=== PATIENT | female | born 1935 | race Caucasian/White ===

== ENCOUNTER 2018-04-02 10:43 | Inpatient (IN) | payer MEDICARE ==
[~2018-04-02] VITALS: Ht 170.2 cm; Wt 62.1 kg
[~2018-04-02 10:43] MED LIST: ACET-2900 PO; ALLO100T PO; AMOX-429 PO; ATOR20TA65 PO; CARV6.25 PO; CELE-84 PO; CITA-107 PO; DIGO0.12 PO; FENO130C8 PO; FISH1CAP50 PO; FURO40TA7 PO; GABA-531 PO; INSU100I3 SQ; LEVO112T7 PO; LIRAGLUTIDE SQ; LISI-613 PO; MAAL30 PO; MELO-106 PO; METO-296 PO; MULT-1203 PO; OMEP20TA25 PO; POTA-79 PO; ROSU10TA PO; SPIR25TA6 PO; VENL225T3 PO; WARF10TA45 PO; ZOLP10TA2 PO; [UNRECOGNIZED DRUG - CODE] PO
[2018-04-02 11:35] LABS: BASOPHILS % (AUTO) 0.3 % (0.0-5.0); EOSINOPHILS % (AUTO) 0.2 % (0.0-8.0); HEMATOCRIT 32.6 % (36-48); MEAN CORPUSCULAR HEMOGLOBIN 30.9 pg (27.0-33.0); MEAN CORPUSCULAR HGB CONC 32.8 g/dL (32.0-36.0); MONOCYTES % (AUTO) 2.7 % (3.0-13.0); NEUTROPHILS % (AUTO) 86.8 % (40.0-77.0); PLATELET COUNT (AUTO) 280 K/uL (130-400); RED BLOOD CELL COUNT(AUTO) 3.46 MIL/uL (4.00-5.50); RED CELL DISTRIBUTION WIDTH 18.6 % (11.0-15.5); WHITE BLOOD COUNT (AUTO) 15.1 K/uL (4.8-10.8)
[2018-04-02 11:36] LABS: ABG BASE EXCESS 6.8 mmol/L (-2.0-3.0); ABG HCO3 31.2 mmol/L (21.0-28.0); ABG PCO2 43 mmHg (32-45)
[2018-04-02 11:43] LABS: CREATININE 1.3 mg/dL (0.5-1.5); POTASSIUM 4.3 mmol/L (3.5-5.1)
[2018-04-02] MEDS ORDERED: MEROPENEM 1 GM VIAL ONE (11:48)
[2018-04-02] MEDS ORDERED: SODIUM CHLORIDE 0.9% 100 ML IV ONE (11:48)
[2018-04-02 11:58] LABS: BILIRUBIN,TOTAL 0.4 mg/dL (0.2-1.0); CREATINE KINASE MB 1.4 ng/mL (0.5-3.6); TOTAL PROTEIN, SERUM 7.1 g/dL (6.0-8.3)
[2018-04-02 12:10] LABS: INR 1.85 (0.85-1.15); PARTIAL THROMBOPLASTIN TIME 42.5 SEC (26.3-35.5); PROTHROMBIN TIME 19.2 SEC (9.6-11.6)
[2018-04-02 13:26] LABS: APPEARANCE,URINE Clear (CLEAR); BILIRUBIN,URINE Negative (NEGATIVE); COLOR,URINE Yellow (YELLOW); GLUCOSE, URINE (UA) Negative (NEGATIVE); KETONES,URINE Negative (NEGATIVE); LEUKOCYTE ESTERASE ,URINE Trace (NEGATIVE); NITRATE,URINE Negative (NEGATIVE); OCCULT BLOOD,URINE Negative (NEGATIVE); PROTEIN,URINE Negative (NEGATIVE)
[2018-04-02] MEDS ORDERED: AZITHROMYCIN 500MG+NS 250ML 250 ML IV ONE (13:36)
[2018-04-02] MEDS ORDERED: FUROSEMIDE 10 MG/ML 4ML VIAL ONE (13:36)
[2018-04-02] MEDS ORDERED: CEFTRIAXONE SODIUM 1 GM ONE (13:36)
[2018-04-02 13:37] LABS: BACTERIA,URINE Many /HPF (None Seen); RBC,URINE 0-1 /HPF (0-1); WBC,URINE 0-1 /HPF (0-1)
[2018-04-02] MEDS ORDERED: SODIUM CHLORIDE 0.9% 50 ML IV ONE (13:37)
[2018-04-02] MEDS ORDERED: SODIUM CHLORIDE 0.9% 250 ML IV ONE (13:37)
[2018-04-02 13:38] LABS: SQUAMOUS EPITHELIAL CELL,UR Rare /HPF (0-2)
[2018-04-02] MEDS ORDERED: SODIUM CHLORIDE 0.9% 10 ML VIAL IVP PRN (13:45)
[2018-04-02] MEDS ORDERED: IPRATROPIUM/ALBUTEROL SULFATE 3 ML SOLUTION IH PRN (13:45)
[2018-04-02] MEDS: IPRATROPIUM/ALBUTEROL SULFATE 3 ML SOLUTION IH SCH ×3 (13:51→22:50)
[2018-04-02] MEDS: CEFTRIAXONE SODIUM 1 GM IVP SCH (14:00)
[2018-04-02] MEDS: FUROSEMIDE 10 MG/ML 4ML VIAL IVP SCH (14:00)
[2018-04-02] MEDS: AZITHROMYCIN 500MG+NS 250ML 250 ML IV SCH (14:00)
[2018-04-02 15:05] VITALS: BP 151/77
[2018-04-02] MEDS ORDERED: MELA1TAB28 PO (16:59)
[2018-04-02] MEDS ORDERED: CELE50CA PO (16:59)
[2018-04-02] MEDS ORDERED: PRAV40TA3 PO (16:59)
[2018-04-02] MEDS ORDERED: CARV6.25 PO (16:59)
[2018-04-02] MEDS ORDERED: LISI-613 PO (17:00)
[2018-04-02] MEDS ORDERED: ACETAMINOPHEN EXTENDED RELEASE 650 MG TABLET PO PRN (17:00)
[2018-04-02] MEDS ORDERED: OMEP20CA10 PO (17:00)
[2018-04-02] MEDS ORDERED: ALPR0.25 PO (17:00)
[2018-04-02] MEDS ORDERED: BENZONATATE 100 MG CAPSULE PO PRN (17:00)
[2018-04-02] MEDS ORDERED: METO10TA3 PO (17:00)
[2018-04-02] MEDS ORDERED: BENZ-51 PO (17:00)
[2018-04-02] MEDS ORDERED: LEVO150T11 PO (17:00)
[2018-04-02] MEDS ORDERED: FUROSEMIDE 80 MG TABLET PO PRN (17:00)
[2018-04-02] MEDS ORDERED: LEVO112T7 PO (17:00)
[2018-04-02] MEDS ORDERED: NAPR-1192 PO (17:00)
[2018-04-02] MEDS ORDERED: NAPROXEN 250 MG TAB PO PRN (17:00)
[2018-04-02] MEDS ORDERED: FURO40TA5 PO (17:00)
[2018-04-02] MEDS ORDERED: VENL-63 PO (17:00)
[2018-04-02] MEDS ORDERED: PRED10TA3 PO (17:00)
[2018-04-02] MEDS ORDERED: ASCO10007 PO (17:00)
[2018-04-02] MEDS ORDERED: VENL75CA97 PO (17:00)
[2018-04-02] MEDS ORDERED: CHOL200013 PO (17:00)
[2018-04-02] MEDS ORDERED: FUROSEMIDE 40 MG TABLET PO PRN (17:00)
[2018-04-02] MEDS ORDERED: FURO80TA3 PO (17:00)
[2018-04-02] MEDS ORDERED: DULA0.75 SQ (17:00)
[2018-04-02] MEDS ORDERED: SOTA80TA PO (17:00)
[2018-04-02] MEDS: ALPRAZOLAM 0.25 MG TABLET PO PRN (17:18)
[2018-04-02 20:00] VITALS: BP 105/50
[2018-04-02] MEDS: PYRIDOXINE HCL PO SCH (21:00)
[2018-04-02] MEDS ORDERED: CELECOXIB PO SCH (21:00)
[2018-04-02] MEDS: CARVEDILOL 6.25 MG TABLET PO SCH (21:00)
[2018-04-02] MEDS: MELATONIN PO SCH (21:00)
[2018-04-02] MEDS: SOTALOL HCL 80 MG TABLET PO SCH (21:49)
[2018-04-02] MEDS: VENLAFAXINE HCL 75 MG TAB PO SCH (21:49)
[2018-04-02] MEDS: FISH OIL 1000 MG/CAP PO SCH (21:49)
[2018-04-02] MEDS: ATORVASTATIN CALCIUM 10 MG TABLET PO SCH (21:49)
[2018-04-02] MEDS: METOCLOPRAMIDE 10 MG TABLET PO SCH (21:49)
[2018-04-03] VITALS (7 sets, daily range): BP systolic 100–140; BP diastolic 50–76
[2018-04-03] MEDS: IPRATROPIUM/ALBUTEROL SULFATE 3 ML SOLUTION IH SCH ×6 (01:59→21:45)
[2018-04-03] MEDS: FUROSEMIDE 10 MG/ML 4ML VIAL IVP SCH (03:57)
[2018-04-03 04:12] LABS: HEMATOCRIT 31.2 % (36-48); MEAN CORPUSCULAR HEMOGLOBIN 31.7 pg (27.0-33.0); MEAN CORPUSCULAR HGB CONC 33.5 g/dL (32.0-36.0); MEAN CORPUSCULAR VOLUME 94.6 fL (79-99); NUCLEATED RED BLOOD CELLS 0.1 % (0.0-0.19); PLATELET COUNT (AUTO) 283 K/uL (130-400); RED CELL DISTRIBUTION WIDTH 18.6 % (11.0-15.5)
[2018-04-03 04:30] LABS: ALBUMIN 1.8 g/dL (3.5-5.0); BILIRUBIN,TOTAL 0.3 mg/dL (0.2-1.0); CREATININE 1.3 mg/dL (0.5-1.5); POTASSIUM 4.6 mmol/L (3.5-5.1); TOTAL PROTEIN, SERUM 6.8 g/dL (6.0-8.3)
[2018-04-03] MEDS: IPRATROPIUM 0.5 MG/2.5 ML INH IH SCH ×4 (06:00→18:00)
[2018-04-03] MEDS: LEVOTHYROXINE 112 MCG TABLET PO SCH (06:57)
[2018-04-03] MEDS: **HM**Cholecalciferol (Vitamin D3) (Vitamin D3) 2,000 UNIT PO SCH (09:00)
[2018-04-03] MEDS ORDERED: VENLAFAXINE HCL XR 150 MG CAP PO SCH (09:00)
[2018-04-03] MEDS: SOTALOL HCL 80 MG TABLET PO SCH ×2 (11:06→22:09)
[2018-04-03] MEDS: ALLOPURINOL 100 MG TABLET PO SCH (11:06)
[2018-04-03] MEDS: FISH OIL 1000 MG/CAP PO SCH ×2 (11:06→22:08)
[2018-04-03] MEDS: METOCLOPRAMIDE 10 MG TABLET PO SCH ×2 (11:06→22:08)
[2018-04-03] MEDS: VENLAFAXINE HCL XR 37.5 MG CAP PO SCH (11:06)
[2018-04-03] MEDS: PANTOPRAZOLE SODIUM 40 MG TABLET.DR PO SCH (11:07)
[2018-04-03] MEDS: CARVEDILOL 6.25 MG TABLET PO SCH ×2 (11:07→21:00)
[2018-04-03] MEDS: ASCORBIC ACID 500 MG TAB PO SCH (11:10)
[2018-04-03] MEDS: LISINOPRIL 20 MG TABLET PO SCH (11:10)
[2018-04-03] MEDS: PREDNISONE 10 MG TABLET PO SCH (11:11)
[2018-04-03] MEDS: AZITHROMYCIN 500MG+NS 250ML 250 ML IV SCH (15:07)
[2018-04-03] MEDS: CEFTRIAXONE SODIUM 1 GM IVP SCH (15:08)
[2018-04-03] MEDS ORDERED: WARFARIN SODIUM 10 MG TABLET PO SCH (16:00)
[2018-04-03] MEDS: ALPRAZOLAM 0.25 MG TABLET PO PRN (17:52)
[2018-04-03] MEDS: PYRIDOXINE HCL PO SCH (21:00)
[2018-04-03] MEDS: MELATONIN PO SCH (21:00)
[2018-04-03] MEDS: ATORVASTATIN CALCIUM 10 MG TABLET PO SCH (22:09)
[2018-04-03] MEDS: VENLAFAXINE HCL 75 MG TAB PO SCH (22:09)
[2018-04-04] MEDS: INSULIN HUMULIN R 100 UNIT/ML 3ML SQ SCH ×5 (00:05→21:58)
[2018-04-04] MEDS: IPRATROPIUM/ALBUTEROL SULFATE 3 ML SOLUTION IH SCH ×6 (01:27→22:38)
[2018-04-04 04:05] VITALS: BP 118/63
[2018-04-04] MEDS: IPRATROPIUM 0.5 MG/2.5 ML INH IH SCH ×4 (06:00→18:00)
[2018-04-04] MEDS: LEVOTHYROXINE 112 MCG TABLET PO SCH (07:06)
[2018-04-04] MEDS: PANTOPRAZOLE SODIUM 40 MG TABLET.DR PO SCH (07:06)
[2018-04-04 08:00] VITALS: BP 121/67
[2018-04-04] MEDS: **HM**Cholecalciferol (Vitamin D3) (Vitamin D3) 2,000 UNIT PO SCH (09:00)
[2018-04-04] MEDS: FISH OIL 1000 MG/CAP PO SCH ×2 (10:41→21:27)
[2018-04-04] MEDS: VENLAFAXINE HCL XR 37.5 MG CAP PO SCH (10:42)
[2018-04-04] MEDS: SOTALOL HCL 80 MG TABLET PO SCH ×2 (10:42→21:26)
[2018-04-04] MEDS: ALLOPURINOL 100 MG TABLET PO SCH (10:43)
[2018-04-04] MEDS: CARVEDILOL 6.25 MG TABLET PO SCH ×2 (10:43→21:00)
[2018-04-04] MEDS: FUROSEMIDE 40 MG TABLET PO SCH ×2 (10:43→18:03)
[2018-04-04] MEDS: METOCLOPRAMIDE 10 MG TABLET PO SCH ×2 (10:43→21:26)
[2018-04-04] MEDS: ASCORBIC ACID 500 MG TAB PO SCH (10:50)
[2018-04-04] MEDS: ZOSYN 3.375GM+NS 50ML 50 ML IV SCH ×2 (10:50→22:05)
[2018-04-04] MEDS: PREDNISONE 10 MG TABLET PO SCH (10:51)
[2018-04-04] MEDS: LEVOTHYROXINE 150 MCG TABLET PO SCH (10:51)
[2018-04-04] MEDS: LISINOPRIL 20 MG TABLET PO SCH (10:51)
[2018-04-04 11:31] VITALS: BP 145/67
[2018-04-04 15:52] VITALS: BP 119/63
[2018-04-04] MEDS ORDERED: WARFARIN SODIUM 10 MG TABLET PO SCH (16:00)
[2018-04-04] MEDS: ALPRAZOLAM 0.25 MG TABLET PO PRN (18:04)
[2018-04-04] MEDS: AZITHROMYCIN 500MG+NS 250ML 250 ML IV SCH (18:15)
[2018-04-04 19:00] VITALS: BP_SYST 106; BP_SYST 116; BP_DIAS 61; BP_DIAS 63
[2018-04-04] MEDS: PYRIDOXINE HCL PO SCH (21:00)
[2018-04-04] MEDS: MELATONIN PO SCH (21:00)
[2018-04-04] MEDS: VENLAFAXINE HCL 75 MG TAB PO SCH (21:26)
[2018-04-04] MEDS: ATORVASTATIN CALCIUM 10 MG TABLET PO SCH (21:26)
[2018-04-04 23:00] VITALS: BP 100/77
[2018-04-05 03:00] VITALS: BP 124/64
[2018-04-05] MEDS: IPRATROPIUM/ALBUTEROL SULFATE 3 ML SOLUTION IH SCH ×6 (03:00→22:28)
[2018-04-05] MEDS: ZOSYN 3.375GM+NS 50ML 50 ML IV SCH ×2 (04:11→10:48)
[2018-04-05 04:25] LABS: HEMATOCRIT 27.7 % (36-48); MEAN CORPUSCULAR HEMOGLOBIN 33.1 pg (27.0-33.0); MEAN CORPUSCULAR VOLUME 94.4 fL (79-99); PLATELET COUNT (AUTO) 257 K/uL (130-400); RED BLOOD CELL COUNT(AUTO) 2.93 MIL/uL (4.00-5.50); RED CELL DISTRIBUTION WIDTH 18.5 % (11.0-15.5); WHITE BLOOD COUNT (AUTO) 10.7 K/uL (4.8-10.8)
[2018-04-05 04:40] LABS: ALBUMIN 1.6 g/dL (3.5-5.0); BILIRUBIN,TOTAL 0.3 mg/dL (0.2-1.0); CREATININE 1.2 mg/dL (0.5-1.5); TOTAL PROTEIN, SERUM 6.5 g/dL (6.0-8.3)
[2018-04-05] MEDS: IPRATROPIUM 0.5 MG/2.5 ML INH IH SCH ×4 (06:00→18:00)
[2018-04-05] MEDS: INSULIN HUMULIN R 100 UNIT/ML 3ML SQ SCH ×4 (06:55→22:18)
[2018-04-05] MEDS: PANTOPRAZOLE SODIUM 40 MG TABLET.DR PO SCH (06:58)
[2018-04-05 08:32] VITALS: BP 122/65
[2018-04-05] MEDS: LISINOPRIL 20 MG TABLET PO SCH (09:00)
[2018-04-05] MEDS: **HM**Cholecalciferol (Vitamin D3) (Vitamin D3) 2,000 UNIT PO SCH (09:00)
[2018-04-05] MEDS: ALLOPURINOL 100 MG TABLET PO SCH (09:00)
[2018-04-05] MEDS ORDERED: LACTULOSE 20 GM/30 ML UDCUP PO PRN (10:30)
[2018-04-05] MEDS ORDERED: DOCUSATE SODIUM 100 MG CAP PO PRN (10:30)
[2018-04-05] MEDS: METOCLOPRAMIDE 10 MG TABLET PO SCH ×2 (10:45→22:13)
[2018-04-05] MEDS: FISH OIL 1000 MG/CAP PO SCH ×2 (10:45→22:12)
[2018-04-05] MEDS ORDERED: ONDANSETRON HCL MDV 20ML 2 MG/ML VIAL IVP PRN (10:45)
[2018-04-05] MEDS: ASCORBIC ACID 500 MG TAB PO SCH (10:45)
[2018-04-05] MEDS: FUROSEMIDE 40 MG TABLET PO SCH ×2 (10:45→17:14)
[2018-04-05] MEDS: SOTALOL HCL 80 MG TABLET PO SCH ×2 (10:46→22:13)
[2018-04-05] MEDS: VENLAFAXINE HCL XR 37.5 MG CAP PO SCH (10:46)
[2018-04-05] MEDS: CARVEDILOL 6.25 MG TABLET PO SCH ×2 (10:47→22:13)
[2018-04-05] MEDS: PREDNISONE 10 MG TABLET PO SCH (10:48)
[2018-04-05 11:42] VITALS: BP 112/45
[2018-04-05 16:02] VITALS: BP 120/62
[2018-04-05] MEDS: AZITHROMYCIN 500MG+NS 250ML 250 ML IV SCH (17:14)
[2018-04-05] MEDS: ALPRAZOLAM 0.25 MG TABLET PO PRN (17:58)
[2018-04-05 19:00] VITALS: BP 105/53
[2018-04-05] MEDS: MELATONIN PO SCH (21:00)
[2018-04-05] MEDS: PYRIDOXINE HCL PO SCH (21:00)
[2018-04-05] MEDS: ATORVASTATIN CALCIUM 10 MG TABLET PO SCH (22:12)
[2018-04-05] MEDS: VENLAFAXINE HCL 75 MG TAB PO SCH (22:13)
[2018-04-05 23:00] VITALS: BP 110/59
[2018-04-06] MEDS: IPRATROPIUM/ALBUTEROL SULFATE 3 ML SOLUTION IH SCH ×6 (01:31→22:28)
[2018-04-06] MEDS: ZOSYN 3.375GM+NS 50ML 50 ML IV SCH ×3 (02:12→17:19)
[2018-04-06 03:00] VITALS: BP 112/51
[2018-04-06] MEDS: IPRATROPIUM 0.5 MG/2.5 ML INH IH SCH ×3 (06:00→12:00)
[2018-04-06] MEDS: LEVOTHYROXINE 150 MCG TABLET PO SCH (06:19)
[2018-04-06] MEDS: PANTOPRAZOLE SODIUM 40 MG TABLET.DR PO SCH (06:19)
[2018-04-06] MEDS: INSULIN HUMULIN R 100 UNIT/ML 3ML SQ SCH ×4 (06:20→22:18)
[2018-04-06 06:41] LABS: HEMATOCRIT 30.9 % (36-48); MEAN CORPUSCULAR HEMOGLOBIN 31.4 pg (27.0-33.0); MEAN CORPUSCULAR HGB CONC 33.1 g/dL (32.0-36.0); PLATELET COUNT (AUTO) 291 K/uL (130-400); RED BLOOD CELL COUNT(AUTO) 3.25 MIL/uL (4.00-5.50); RED CELL DISTRIBUTION WIDTH 17.9 % (11.0-15.5); WHITE BLOOD COUNT (AUTO) 11.4 K/uL (4.8-10.8)
[2018-04-06 06:48] LABS: CREATININE 1.2 mg/dL (0.5-1.5); POTASSIUM 4.4 mmol/L (3.5-5.1)
[2018-04-06 08:00] VITALS: BP 143/65
[2018-04-06] MEDS: **HM**Cholecalciferol (Vitamin D3) (Vitamin D3) 2,000 UNIT PO SCH (09:00)
[2018-04-06] MEDS: ASCORBIC ACID 500 MG TAB PO SCH (10:06)
[2018-04-06] MEDS: VENLAFAXINE HCL XR 37.5 MG CAP PO SCH (10:06)
[2018-04-06] MEDS: FISH OIL 1000 MG/CAP PO SCH ×2 (10:06→22:09)
[2018-04-06] MEDS: METOCLOPRAMIDE 10 MG TABLET PO SCH ×2 (10:06→22:08)
[2018-04-06] MEDS: PREDNISONE 10 MG TABLET PO SCH (10:07)
[2018-04-06] MEDS: SOTALOL HCL 80 MG TABLET PO SCH ×2 (10:07→22:08)
[2018-04-06] MEDS: ALLOPURINOL 100 MG TABLET PO SCH (10:07)
[2018-04-06] MEDS: LISINOPRIL 20 MG TABLET PO SCH (10:07)
[2018-04-06] MEDS: FUROSEMIDE 40 MG TABLET PO SCH ×2 (10:07→17:19)
[2018-04-06] MEDS: CARVEDILOL 6.25 MG TABLET PO SCH ×2 (10:08→22:08)
[2018-04-06 11:00] VITALS: BP 144/83
[2018-04-06] MEDS: AZITHROMYCIN 500MG+NS 250ML 250 ML IV SCH (14:35)
[2018-04-06 16:00] VITALS: BP 122/68
[2018-04-06] MEDS: ALPRAZOLAM 0.25 MG TABLET PO PRN (18:05)
[2018-04-06 20:00] VITALS: BP 126/61
[2018-04-06] MEDS: MELATONIN PO SCH (21:00)
[2018-04-06] MEDS: PYRIDOXINE HCL PO SCH (21:00)
[2018-04-06] MEDS: ATORVASTATIN CALCIUM 10 MG TABLET PO SCH (22:08)
[2018-04-06] MEDS: VENLAFAXINE HCL 75 MG TAB PO SCH (22:08)
[2018-04-06 23:53] VITALS: BP 128/73
[2018-04-07] MEDS: IPRATROPIUM 0.5 MG/2.5 ML INH IH SCH
[2018-04-07] MEDS: IPRATROPIUM/ALBUTEROL SULFATE 3 ML SOLUTION IH SCH ×6 (02:20→21:29)
[2018-04-07 03:29] VITALS: BP 143/87
[2018-04-07] MEDS: ZOSYN 3.375GM+NS 50ML 50 ML IV SCH ×3 (03:37→20:05)
[2018-04-07] MEDS: INSULIN HUMULIN R 100 UNIT/ML 3ML SQ SCH ×3 (06:10→18:12)
[2018-04-07 06:16] LABS: HEMATOCRIT 30.8 % (36-48); MEAN CORPUSCULAR HEMOGLOBIN 30.7 pg (27.0-33.0); MEAN CORPUSCULAR HGB CONC 32.6 g/dL (32.0-36.0); PLATELET COUNT (AUTO) 254 K/uL (130-400); RED BLOOD CELL COUNT(AUTO) 3.27 MIL/uL (4.00-5.50); RED CELL DISTRIBUTION WIDTH 18.1 % (11.0-15.5); WHITE BLOOD COUNT (AUTO) 8.7 K/uL (4.8-10.8)
[2018-04-07 06:26] LABS: CREATININE 1.2 mg/dL (0.5-1.5); POTASSIUM 3.7 mmol/L (3.5-5.1)
[2018-04-07] MEDS: LEVOTHYROXINE 112 MCG TABLET PO SCH (06:38)
[2018-04-07] MEDS: PANTOPRAZOLE SODIUM 40 MG TABLET.DR PO SCH (06:38)
[2018-04-07 08:00] VITALS: BP 137/69
[2018-04-07] MEDS: **HM**Cholecalciferol (Vitamin D3) (Vitamin D3) 2,000 UNIT PO SCH (09:00)
[2018-04-07] MEDS: FISH OIL 1000 MG/CAP PO SCH ×2 (10:26→20:07)
[2018-04-07] MEDS: VENLAFAXINE HCL XR 37.5 MG CAP PO SCH (10:26)
[2018-04-07] MEDS: ALLOPURINOL 100 MG TABLET PO SCH (10:27)
[2018-04-07] MEDS: SOTALOL HCL 80 MG TABLET PO SCH ×2 (10:27→20:06)
[2018-04-07] MEDS: CARVEDILOL 6.25 MG TABLET PO SCH ×2 (10:27→20:06)
[2018-04-07] MEDS: METOCLOPRAMIDE 10 MG TABLET PO SCH ×2 (10:27→20:07)
[2018-04-07] MEDS: FUROSEMIDE 40 MG TABLET PO SCH ×2 (10:30→18:04)
[2018-04-07] MEDS: ASCORBIC ACID 500 MG TAB PO SCH (10:42)
[2018-04-07] MEDS: LISINOPRIL 20 MG TABLET PO SCH (10:42)
[2018-04-07] MEDS: PREDNISONE 10 MG TABLET PO SCH (10:42)
[2018-04-07 11:00] VITALS: BP 170/90
[2018-04-07 16:00] VITALS: BP 114/57
[2018-04-07] MEDS: ALPRAZOLAM 0.25 MG TABLET PO PRN (18:04)
[2018-04-07] MEDS: AZITHROMYCIN 500MG+NS 250ML 250 ML IV SCH (18:04)
[2018-04-07 19:00] VITALS: BP 151/77
[2018-04-07] MEDS: ATORVASTATIN CALCIUM 10 MG TABLET PO SCH (20:06)
[2018-04-07] MEDS: VENLAFAXINE HCL 75 MG TAB PO SCH (20:06)
[2018-04-07] MEDS: PYRIDOXINE HCL PO SCH (20:07)
[2018-04-07] MEDS: MELATONIN PO SCH (20:07)
[2018-04-07 23:00] VITALS: BP 128/67
[2018-04-08] MEDS: IPRATROPIUM/ALBUTEROL SULFATE 3 ML SOLUTION IH SCH ×5 (02:43→18:44)
[2018-04-08 03:00] VITALS: BP_SYST 113; BP_SYST 134; BP_DIAS 63
[2018-04-08] MEDS: ZOSYN 3.375GM+NS 50ML 50 ML IV SCH ×2 (03:43→11:32)
[2018-04-08] MEDS: INSULIN HUMULIN R 100 UNIT/ML 3ML SQ SCH ×4 (03:44→16:12)
[2018-04-08 05:25] LABS: HEMATOCRIT 30.3 % (36-48); MEAN CORPUSCULAR HEMOGLOBIN 30.7 pg (27.0-33.0); MEAN CORPUSCULAR HGB CONC 32.8 g/dL (32.0-36.0); MEAN CORPUSCULAR VOLUME 93.5 fL (79-99); NUCLEATED RED BLOOD CELLS 0.1 % (0.0-0.19); PLATELET COUNT (AUTO) 271 K/uL (130-400); RED BLOOD CELL COUNT(AUTO) 3.24 MIL/uL (4.00-5.50); RED CELL DISTRIBUTION WIDTH 18.1 % (11.0-15.5); WHITE BLOOD COUNT (AUTO) 8.8 K/uL (4.8-10.8)
[2018-04-08 05:29] LABS: CREATININE 1.3 mg/dL (0.5-1.5); POTASSIUM 3.9 mmol/L (3.5-5.1)
[2018-04-08] MEDS: PANTOPRAZOLE SODIUM 40 MG TABLET.DR PO SCH (06:33)
[2018-04-08] MEDS: LEVOTHYROXINE 150 MCG TABLET PO SCH (06:33)
[2018-04-08 07:00] VITALS: BP 141/75
[2018-04-08] MEDS: **HM**Cholecalciferol (Vitamin D3) (Vitamin D3) 2,000 UNIT PO SCH (09:00)
[2018-04-08] MEDS: HONEY 1 APPL/ML TUBE TP SCH ×2 (10:00→16:02)
[2018-04-08 11:00] VITALS: BP 134/81
[2018-04-08] MEDS: FUROSEMIDE 40 MG TABLET PO SCH ×2 (11:21→16:07)
[2018-04-08] MEDS: LISINOPRIL 20 MG TABLET PO SCH (11:21)
[2018-04-08] MEDS: VENLAFAXINE HCL XR 37.5 MG CAP PO SCH (11:21)
[2018-04-08] MEDS: FISH OIL 1000 MG/CAP PO SCH (11:22)
[2018-04-08] MEDS: ASCORBIC ACID 500 MG TAB PO SCH (11:22)
[2018-04-08] MEDS: PREDNISONE 10 MG TABLET PO SCH (11:22)
[2018-04-08] MEDS: SOTALOL HCL 80 MG TABLET PO SCH (11:22)
[2018-04-08] MEDS: CARVEDILOL 6.25 MG TABLET PO SCH (11:22)
[2018-04-08] MEDS: METOCLOPRAMIDE 10 MG TABLET PO SCH (11:23)
[2018-04-08] MEDS: ALLOPURINOL 100 MG TABLET PO SCH (11:23)
[2018-04-08 15:21] VITALS: BP 155/72
[2018-04-08] MEDS: AZITHROMYCIN 500MG+NS 250ML 250 ML IV SCH (15:42)
[2018-04-08] MEDS: ALPRAZOLAM 0.25 MG TABLET PO PRN (18:00)
[2018-04-08 19:05] VITALS: BP 136/67
[2018-04-08] MEDS ORDERED: INSULIN GLARGINE 100 UNITS/ML 10 ML VIAL SQ SCH (21:00)
[2018-04-09] MEDS ORDERED: DULAGLUTIDE 0.75 MG SQ SCH (09:00)
[2018-05-21] MEDS ORDERED: MELA5TAB14 PEG (18:49)
[2018-05-21] MEDS ORDERED: VENL150T3 PEG (18:49)
[2018-05-21] MEDS ORDERED: FURO-151 PEG (18:49)
[2018-05-21] MEDS ORDERED: HONE15GE TP (18:49)
[2018-05-21] MEDS ORDERED: CELE100C PEG (18:49)
[2018-05-21] MEDS ORDERED: LEVO150T11 PEG (18:49)
[2018-05-21] MEDS ORDERED: CARV6.25 PEG (18:49)
[2018-05-21] MEDS ORDERED: LEVO112T7 PEG (18:49)
[2018-05-21] MEDS ORDERED: INSLAN SQ (18:49)
[2018-05-21] MEDS ORDERED: PRED10TA3 PEG (18:49)
[2018-05-21] MEDS ORDERED: LANS30TA10 PEG (18:49)
[2018-05-21] MEDS ORDERED: WARF-57 PEG (18:49)
[2018-05-21] MEDS ORDERED: SOTA80TA PEG (18:49)
[2018-05-21] MEDS ORDERED: IPRA3AMP24 IH (18:49)
== END 2018-04-08 20:10 | DRG 177 ==
LOC: EDH 10:43 → OBSVTOIN 13:16 → EDHIP 13:16 → 3CH 14:15
PROVIDERS: ADMIT Internal Medicine; ATTEND Internal Medicine
DX: J69.0 Pneumonitis due to inhalation of food and vomit (principal); J96.01 Acute respiratory failure with hypoxia; I50.43 Acute on chronic combined systolic (congestive) and diastolic (congestive) heart failure; D68.9 Coagulation defect, unspecified; E11.65 Type 2 diabetes mellitus with hyperglycemia; I48.91 Unspecified atrial fibrillation; J44.1 Chronic obstructive pulmonary disease with (acute) exacerbation; J44.0 Chronic obstructive pulmonary disease with (acute) lower respiratory infection; I11.0 Hypertensive heart disease with heart failure; I25.10 Atherosclerotic heart disease of native coronary artery without angina pectoris; K21.9 Gastro-esophageal reflux disease without esophagitis; R13.10 Dysphagia, unspecified; Z79.01 Long term (current) use of anticoagulants; Z93.3 Colostomy status; Z95.2 Presence of prosthetic heart valve; Z88.5 Allergy status to narcotic agent; Z88.2 Allergy status to sulfonamides; Z88.8 Allergy status to other drugs, medicaments and biological substances; E78.5 Hyperlipidemia, unspecified; Z90.49 Acquired absence of other specified parts of digestive tract
CPT/HCPCS: 36415; 36600; 70450; 71045; 74230; 80048; 80053; 81001; 82550; 82553; 82803; 82948; 83605; 83880; 84484; 85025; 85027; 85610; 85730; 87040; 92610; 92611; 93005; 93306; 94640; 94664; 94667; 94668; 97039; A4218; J0456; J0696; J1815; J1940; J2185; J2543; J7030; J7512

== ENCOUNTER 2018-04-23 17:45 | Inpatient (IN) | payer MEDICARE ==
[~2018-04-23] VITALS: Ht 157.5 cm; Wt 62.6 kg
[~2018-04-23 17:45] MED LIST changes: +ALPR0.25 PO; -AMOX-429 PO; +ASCO10007 PO; -ATOR20TA65 PO; +BENZ-51 PO; -CELE-84 PO; +CELE50CA PO; +CHOL200013 PO; -CITA-107 PO; -DIGO0.12 PO; +DULA0.75 SQ; -FENO130C8 PO; -FISH1CAP50 PO; +FURO40TA5 PO; -FURO40TA7 PO; +FURO80TA3 PO; -GABA-531 PO; -INSU100I3 SQ; +LEVO150T11 PO; -LIRAGLUTIDE SQ; -MAAL30 PO; +MELA1TAB28 PO; -MELO-106 PO; -METO-296 PO; +METO10TA3 PO; -MULT-1203 PO; +NAPR-1192 PO; +OMEP20CA10 PO; -OMEP20TA25 PO; -POTA-79 PO; +PRAV40TA3 PO; +PRED10TA3 PO; -ROSU10TA PO; +SOTA80TA PO; -SPIR25TA6 PO; +VENL-63 PO; -VENL225T3 PO; +VENL75CA97 PO; -WARF10TA45 PO; -ZOLP10TA2 PO; -[UNRECOGNIZED DRUG - CODE] PO
[2018-04-23] MEDS ORDERED: IPRATROPIUM/ALBUTEROL SULFATE 3 ML SOLUTION IH ONE (17:52)
[2018-04-23 18:25] LABS: BASOPHILS % (AUTO) 0.2 % (0.0-5.0); HEMATOCRIT 40.5 % (36-48); LYMPHOCYTES % (AUTO) 17.1 % (21.0-51.0); MEAN CORPUSCULAR HEMOGLOBIN 30.6 pg (27.0-33.0); MEAN CORPUSCULAR HGB CONC 31.5 g/dL (32.0-36.0); MEAN CORPUSCULAR VOLUME 97.2 fL (79-99); MONOCYTES % (AUTO) 4.9 % (3.0-13.0); NEUTROPHILS % (AUTO) 77.8 % (40.0-77.0); NUCLEATED RED BLOOD CELLS 0.1 % (0.0-0.19); PLATELET COUNT (AUTO) 316 K/uL (130-400); RED BLOOD CELL COUNT(AUTO) 4.17 MIL/uL (4.00-5.50); RED CELL DISTRIBUTION WIDTH 18.3 % (11.0-15.5); WHITE BLOOD COUNT (AUTO) 12.7 K/uL (4.8-10.8)
[2018-04-23 18:30] LABS: ALBUMIN 2.6 g/dL (3.5-5.0); BILIRUBIN,TOTAL 0.7 mg/dL (0.2-1.0); CREATININE 1.8 mg/dL (0.5-1.5); POTASSIUM 4.8 mmol/L (3.5-5.1); TOTAL PROTEIN, SERUM 8.2 g/dL (6.0-8.3)
[2018-04-23 18:33] LABS: INR 1.09 (0.85-1.15); PARTIAL THROMBOPLASTIN TIME 29.1 SEC (26.3-35.5); PROTHROMBIN TIME 11.4 SEC (9.6-11.6)
[2018-04-23 18:36] LABS: ABG BASE EXCESS 5.8 mmol/L (-2.0-3.0); ABG HCO3 30.5 mmol/L (21.0-28.0); ABG OXYGEN SATURATION 96.4 % (95.0-99.0); ABG PCO2 44 mmHg (32-45)
[2018-04-23] MEDS ORDERED: NITROGLYCERIN 0.4 MG SL TAB SL ONE (18:38)
[2018-04-23] MEDS ORDERED: ZOSYN 3.375GM+NS 50ML 50 ML IV ONE (18:38)
[2018-04-23] MEDS ORDERED: METHYLPREDNISOLONE SOD SUCC 125MG/2ML VIAL ONE (18:38)
[2018-04-23] MEDS ORDERED: NITROGLYCERIN 1GM/1 INCH PACKET TD ONE (18:39)
[2018-04-23] MEDS ORDERED: FUROSEMIDE 10 MG/ML 10ML VIAL IVP SCH (21:00)
[2018-04-23] MEDS ORDERED: ASPIRIN 325 MG TABLET ONE (21:17)
[2018-04-23] MEDS ORDERED: VANCOMYCIN 1GM+NS 250ML 250 ML IV ONE (21:18)
[2018-04-23] MEDS ORDERED: CEFTRIAXONE SODIUM 1 GM ONE (22:18)
[2018-04-23] MEDS ORDERED: FUROSEMIDE 10 MG/ML 4ML VIAL ONE (22:18)
[2018-04-23 23:33] VITALS: BP 138/68
[2018-04-23] MEDS: IPRATROPIUM/ALBUTEROL SULFATE 3 ML SOLUTION IH SCH (23:41)
[2018-04-24] MEDS ORDERED: TIOT18CA3 IH (03:55)
[2018-04-24] MEDS ORDERED: IPRA3AMP24 IH (03:55)
[2018-04-24] MEDS ORDERED: COLL1POW2 MC (03:55)
[2018-04-24] MEDS ORDERED: INSLAN SQ (03:55)
[2018-04-24] MEDS ORDERED: LIRA3PEN SQ (03:55)
[2018-04-24] MEDS ORDERED: WARF5TAB76 PO (03:55)
[2018-04-24] MEDS ORDERED: PROM50TA3 PO (03:55)
[2018-04-24] MEDS ORDERED: INSU100V3 IJ (03:57)
[2018-04-24 04:00] VITALS: BP 144/89
[2018-04-24] MEDS ORDERED: FUROSEMIDE 10 MG/ML 4ML VIAL IVP SCH (06:00)
[2018-04-24] MEDS: IPRATROPIUM/ALBUTEROL SULFATE 3 ML SOLUTION IH SCH ×4 (06:53→23:18)
[2018-04-24 07:28] VITALS: BP 141/92
[2018-04-24] MEDS ORDERED: NAPROXEN 250 MG TAB PO PRN (08:00)
[2018-04-24] MEDS ORDERED: ACETAMINOPHEN EXTENDED RELEASE 650 MG TABLET PO PRN (08:00)
[2018-04-24] MEDS ORDERED: PROMETHAZINE HCL 25 MG TABLET PO PRN (08:00)
[2018-04-24] MEDS ORDERED: BENZONATATE 100 MG CAPSULE PO PRN (08:00)
[2018-04-24] MEDS: LIRAGLUTIDE 1.8 MG SQ SCH (09:00)
[2018-04-24] MEDS ORDERED: CEFTRIAXONE SODIUM 1 GM IVP SCH (09:00)
[2018-04-24] MEDS ORDERED: PREDNISONE 10 MG TABLET PO SCH (09:00)
[2018-04-24] MEDS ORDERED: VENLAFAXINE HCL XR 37.5 MG CAP PO SCH ×2 (09:00→21:00)
[2018-04-24] MEDS ORDERED: SUB TO IPRATROPIUM 0.5MG/2.5ML PER P&T IH SCH (09:00)
[2018-04-24] MEDS: ***HM***(Cholecalciferol (Vitamin D3) (Vitamin D3) 2,000 UNIT) PO SCH (09:00)
[2018-04-24] MEDS ORDERED: IPRATROPIUM/ALBUTEROL SULFATE 3 ML SOLUTION IH SCH (10:00)
[2018-04-24 11:09] VITALS: BP 156/74
[2018-04-24] MEDS: FUROSEMIDE 10 MG/ML 10ML VIAL IVP SCH ×2 (11:37→20:50)
[2018-04-24] MEDS: SOTALOL HCL 80 MG TABLET PO SCH ×2 (11:37→20:47)
[2018-04-24] MEDS: CARVEDILOL 6.25 MG TABLET PO SCH ×2 (11:38→20:47)
[2018-04-24] MEDS: ASCORBIC ACID 500 MG TAB PO SCH (11:38)
[2018-04-24] MEDS: ALLOPURINOL 100 MG TABLET PO SCH (11:38)
[2018-04-24] MEDS ORDERED: PHARMACY COMMUNICATION MISC SCH (11:45)
[2018-04-24] MEDS: LEVOTHYROXINE 150 MCG TABLET PO SCH (12:00)
[2018-04-24] MEDS: INSULIN GLARGINE 100 UNITS/ML 10 ML VIAL SQ SCH (12:28)
[2018-04-24] MEDS: PREDNISONE 10 MG TABLET PO SCH ×3 (14:30→20:48)
[2018-04-24] MEDS ORDERED: CEFEPIME 1GM+NS 50ML 50 ML IV SCH (14:30)
[2018-04-24 16:04] VITALS: BP 165/87
[2018-04-24] MEDS: METOCLOPRAMIDE 10 MG TABLET PO SCH (16:21)
[2018-04-24] MEDS: WARFARIN SODIUM 5 MG TAB PO SCH (16:21)
[2018-04-24] MEDS: CEFEPIME HCL 1 GM VIAL IVP SCH (17:46)
[2018-04-24] MEDS: INSULIN HUMULIN R 100 UNIT/ML 3ML SQ SCH ×2 (17:48→21:20)
[2018-04-24] MEDS ORDERED: ALPRAZOLAM 0.5 MG TABLET ONE (17:50)
[2018-04-24] MEDS: ENOXAPARIN SODIUM 60 MG/0.6 ML SQ SCH (17:52)
[2018-04-24] MEDS: ALPRAZOLAM 0.25 MG TABLET PO PRN (17:53)
[2018-04-24] MEDS: DOXYCYCLINE 100MG+NS 250ML 250 ML IV SCH (18:20)
[2018-04-24 20:01] VITALS: BP 146/78
[2018-04-24] MEDS: CELECOXIB 100 MG CAP PO SCH (20:46)
[2018-04-24] MEDS: VENLAFAXINE HCL 50 MG TABLET PO SCH (20:46)
[2018-04-24] MEDS: ATORVASTATIN CALCIUM 20 MG TABLET PO SCH (20:47)
[2018-04-24] MEDS: PYRIDOXINE HCL PO SCH (20:48)
[2018-04-24] MEDS: MELATONIN PO SCH (20:48)
[2018-04-24 23:41] VITALS: BP 137/73
[2018-04-25 03:48] VITALS: BP_SYST 127; BP_SYST 144; BP_DIAS 69; BP_DIAS 76
[2018-04-25 04:17] LABS: BASOPHILS % (AUTO) 0.1 % (0.0-5.0); HEMATOCRIT 33.5 % (36-48); LYMPHOCYTES % (AUTO) 13.9 % (21.0-51.0); MEAN CORPUSCULAR HEMOGLOBIN 32.4 pg (27.0-33.0); MEAN CORPUSCULAR HGB CONC 34.3 g/dL (32.0-36.0); MEAN CORPUSCULAR VOLUME 94.5 fL (79-99); MONOCYTES % (AUTO) 3.7 % (3.0-13.0); NEUTROPHILS % (AUTO) 82.3 % (40.0-77.0); PLATELET COUNT (AUTO) 256 K/uL (130-400); RED BLOOD CELL COUNT(AUTO) 3.54 MIL/uL (4.00-5.50); RED CELL DISTRIBUTION WIDTH 18.7 % (11.0-15.5); WHITE BLOOD COUNT (AUTO) 12.4 K/uL (4.8-10.8)
[2018-04-25 04:19] LABS: ABG BASE EXCESS 11.2 mmol/L (-2.0-3.0); ABG PCO2 42 mmHg (32-45)
[2018-04-25 04:30] LABS: INR 1.21 (0.85-1.15); PROTHROMBIN TIME 12.7 SEC (9.6-11.6)
[2018-04-25 04:39] LABS: ALBUMIN 2.1 g/dL (3.5-5.0); BILIRUBIN,TOTAL 0.3 mg/dL (0.2-1.0); CREATININE 1.4 mg/dL (0.5-1.5); MAGNESIUM 1.7 mg/dL (1.80-2.40); PHOSPHORUS 2.8 mg/dL (2.5-4.9); POTASSIUM 3.3 mmol/L (3.5-5.1); THYROID STIMULATING HORMONE 3.91 uIU/mL (0.36-3.74); TOTAL PROTEIN, SERUM 7.1 g/dL (6.0-8.3)
[2018-04-25] MEDS: CEFEPIME HCL 1 GM VIAL IVP SCH ×2 (05:20→17:13)
[2018-04-25] MEDS: DOXYCYCLINE 100MG+NS 250ML 250 ML IV SCH ×2 (05:21→17:13)
[2018-04-25] MEDS: INSULIN HUMULIN R 100 UNIT/ML 3ML SQ SCH ×3 (05:36→21:28)
[2018-04-25] MEDS: IPRATROPIUM/ALBUTEROL SULFATE 3 ML SOLUTION IH SCH ×3 (06:41→18:14)
[2018-04-25] MEDS ORDERED: PANTOPRAZOLE SODIUM 40 MG TABLET.DR PO SCH (07:30)
[2018-04-25 08:00] VITALS: BP 154/83
[2018-04-25] MEDS: ***HM***(Cholecalciferol (Vitamin D3) (Vitamin D3) 2,000 UNIT) PO SCH (09:00)
[2018-04-25] MEDS ORDERED: VENLAFAXINE HCL 50 MG TABLET PO SCH (09:00)
[2018-04-25] MEDS: LIRAGLUTIDE 1.8 MG SQ SCH (09:00)
[2018-04-25] MEDS: PREDNISONE 10 MG TABLET PO SCH ×4 (09:00→21:33)
[2018-04-25] MEDS: FUROSEMIDE 10 MG/ML 10ML VIAL IVP SCH ×2 (09:14→23:10)
[2018-04-25] MEDS: ALLOPURINOL 100 MG TABLET PO SCH (09:15)
[2018-04-25] MEDS: ASCORBIC ACID 500 MG TAB PO SCH (09:15)
[2018-04-25] MEDS: METOCLOPRAMIDE 10 MG TABLET PO SCH ×2 (09:16→17:13)
[2018-04-25] MEDS: SOTALOL HCL 80 MG TABLET PO SCH ×2 (09:16→21:37)
[2018-04-25] MEDS: CARVEDILOL 6.25 MG TABLET PO SCH ×2 (09:16→21:29)
[2018-04-25] MEDS: LEVOTHYROXINE 112 MCG TABLET PO SCH (09:21)
[2018-04-25] MEDS: ENOXAPARIN SODIUM 60 MG/0.6 ML SQ SCH (09:23)
[2018-04-25] MEDS: INSULIN GLARGINE 100 UNITS/ML 10 ML VIAL SQ SCH (09:25)
[2018-04-25] MEDS: FAMOTIDINE 20MG TAB 20 MG TAB PO SCH ×2 (10:43→21:29)
[2018-04-25 11:49] VITALS: BP 123/70
[2018-04-25] MEDS ORDERED: POTASSIUM CHLORIDE 10% ELIXIR 20 MEQ/15 ML UDCUP PO PRN (13:00)
[2018-04-25] MEDS ORDERED: POTASSIUM CHLORIDE 20MEQ/100ML 100 ML IV PRN (13:00)
[2018-04-25] MEDS ORDERED: LIDOCAINE HCL-MPF 1% 2ML VIAL IVP PRN (13:00)
[2018-04-25] MEDS ORDERED: MAGNESIUM 2GM PREMIX 50ML 50 ML IV SCH (13:00)
[2018-04-25 16:00] VITALS: BP 114/59
[2018-04-25] MEDS: FUROSEMIDE 20 MG TABLET PO SCH (17:10)
[2018-04-25] MEDS: ALPRAZOLAM 0.25 MG TABLET PO PRN (17:12)
[2018-04-25] MEDS: WARFARIN SODIUM 5 MG TAB PO SCH (17:13)
[2018-04-25] MEDS: POTASSIUM CHLORIDE 20 MEQ ERTAB PO PRN (17:16)
[2018-04-25 19:20] VITALS: BP 122/68
[2018-04-25] MEDS: MELATONIN PO SCH (21:00)
[2018-04-25] MEDS: PYRIDOXINE HCL PO SCH (21:00)
[2018-04-25] MEDS: ATORVASTATIN CALCIUM 20 MG TABLET PO SCH (21:29)
[2018-04-25] MEDS: VENLAFAXINE HCL 50 MG TABLET PO SCH (22:08)
[2018-04-25] MEDS: CELECOXIB 100 MG CAP PO SCH (22:08)
[2018-04-25] MEDS ORDERED: FUROSEMIDE 10 MG/ML 2ML VIAL ONE (23:09)
[2018-04-25] MEDS ORDERED: WARFARIN SODIUM 5 MG TAB PO SCH (23:30)
[2018-04-26] VITALS (7 sets, daily range): BP systolic 110–151; BP diastolic 61–81
[2018-04-26] MEDS: IPRATROPIUM/ALBUTEROL SULFATE 3 ML SOLUTION IH SCH ×4 (00:57→18:39)
[2018-04-26] MEDS: POTASSIUM CHLORIDE 20 MEQ ERTAB PO PRN (02:08)
[2018-04-26 05:37] LABS: HEMATOCRIT 35.1 % (36-48); MEAN CORPUSCULAR HEMOGLOBIN 31.1 pg (27.0-33.0); MEAN CORPUSCULAR HGB CONC 32.9 g/dL (32.0-36.0); MEAN CORPUSCULAR VOLUME 94.7 fL (79-99); PLATELET COUNT (AUTO) 193 K/uL (130-400); RED BLOOD CELL COUNT(AUTO) 3.71 MIL/uL (4.00-5.50); RED CELL DISTRIBUTION WIDTH 18.4 % (11.0-15.5)
[2018-04-26 05:44] LABS: INR 1.22 (0.85-1.15); PROTHROMBIN TIME 12.8 SEC (9.6-11.6)
[2018-04-26 05:47] LABS: CREATININE 1.3 mg/dL (0.5-1.5); MAGNESIUM 2.1 mg/dL (1.80-2.40); PHOSPHORUS 2.5 mg/dL (2.5-4.9); POTASSIUM 3.7 mmol/L (3.5-5.1)
[2018-04-26] MEDS: INSULIN HUMULIN R 100 UNIT/ML 3ML SQ SCH ×4 (07:03→21:27)
[2018-04-26] MEDS: CEFEPIME HCL 1 GM VIAL IVP SCH ×2 (07:05→18:59)
[2018-04-26] MEDS: DOXYCYCLINE 100MG+NS 250ML 250 ML IV SCH ×2 (07:06→18:59)
[2018-04-26] MEDS: LEVOTHYROXINE 150 MCG TABLET PO SCH (07:11)
[2018-04-26] MEDS: LIRAGLUTIDE 1.8 MG SQ SCH (09:00)
[2018-04-26] MEDS ORDERED: ENOXAPARIN SODIUM 60 MG/0.6 ML SQ SCH (09:00)
[2018-04-26] MEDS: ***HM***(Cholecalciferol (Vitamin D3) (Vitamin D3) 2,000 UNIT) PO SCH (09:00)
[2018-04-26] MEDS: ENOXAPARIN SODIUM 60 MG/0.6 ML SQ SCH (09:00)
[2018-04-26] MEDS: CARVEDILOL 6.25 MG TABLET PO SCH ×2 (11:21→21:24)
[2018-04-26] MEDS: PREDNISONE 10 MG TABLET PO SCH ×2 (11:22→21:25)
[2018-04-26] MEDS: ALLOPURINOL 100 MG TABLET PO SCH (11:22)
[2018-04-26] MEDS: FAMOTIDINE 20MG TAB 20 MG TAB PO SCH ×2 (11:22→21:24)
[2018-04-26] MEDS: METOCLOPRAMIDE 10 MG TABLET PO SCH ×2 (11:23→16:30)
[2018-04-26] MEDS: VENLAFAXINE HCL XR 37.5 MG CAP PO SCH ×2 (11:23→21:29)
[2018-04-26] MEDS: SOTALOL HCL 80 MG TABLET PO SCH ×2 (11:23→21:23)
[2018-04-26] MEDS: FUROSEMIDE 20 MG TABLET PO SCH ×2 (11:23→16:29)
[2018-04-26] MEDS: ASCORBIC ACID 500 MG TAB PO SCH (11:24)
[2018-04-26] MEDS: INSULIN GLARGINE 100 UNITS/ML 10 ML VIAL SQ SCH (11:44)
[2018-04-26] MEDS: WARFARIN SODIUM 5 MG TAB PO SCH (16:29)
[2018-04-26] MEDS: ALPRAZOLAM 0.25 MG TABLET PO PRN (18:59)
[2018-04-26] MEDS: PYRIDOXINE HCL PO SCH (21:00)
[2018-04-26] MEDS: MELATONIN PO SCH (21:00)
[2018-04-26] MEDS: ATORVASTATIN CALCIUM 20 MG TABLET PO SCH (21:24)
[2018-04-26] MEDS: CELECOXIB 100 MG CAP PO SCH (21:25)
[2018-04-27 00:26] VITALS: BP 121/72
[2018-04-27] MEDS: IPRATROPIUM/ALBUTEROL SULFATE 3 ML SOLUTION IH SCH ×5 (00:58→22:59)
[2018-04-27 04:06] VITALS: BP 142/77
[2018-04-27] MEDS: CEFEPIME HCL 1 GM VIAL IVP SCH ×2 (05:34→18:53)
[2018-04-27] MEDS: DOXYCYCLINE 100MG+NS 250ML 250 ML IV SCH ×2 (05:42→18:53)
[2018-04-27] MEDS: LEVOTHYROXINE 112 MCG TABLET PO SCH (05:46)
[2018-04-27 06:37] LABS: INR 1.3 (0.85-1.15); PROTHROMBIN TIME 13.6 SEC (9.6-11.6)
[2018-04-27 06:38] LABS: CREATININE 1.4 mg/dL (0.5-1.5); POTASSIUM 3.9 mmol/L (3.5-5.1)
[2018-04-27 06:40] LABS: MEAN CORPUSCULAR HGB CONC 33.5 g/dL (32.0-36.0); MEAN CORPUSCULAR VOLUME 95.4 fL (79-99); NUCLEATED RED BLOOD CELLS 0.1 % (0.0-0.19); PLATELET COUNT (AUTO) 243 K/uL (130-400); RED BLOOD CELL COUNT(AUTO) 3.57 MIL/uL (4.00-5.50); RED CELL DISTRIBUTION WIDTH 18.7 % (11.0-15.5); WHITE BLOOD COUNT (AUTO) 9.9 K/uL (4.8-10.8)
[2018-04-27] MEDS: INSULIN HUMULIN R 100 UNIT/ML 3ML SQ SCH ×4 (07:30→21:28)
[2018-04-27] MEDS: LIRAGLUTIDE 1.8 MG SQ SCH (08:20)
[2018-04-27] MEDS: ***HM***(Cholecalciferol (Vitamin D3) (Vitamin D3) 2,000 UNIT) PO SCH (08:21)
[2018-04-27 08:30] VITALS: BP 125/55
[2018-04-27] MEDS: SOTALOL HCL 80 MG TABLET PO SCH ×2 (09:17→21:23)
[2018-04-27] MEDS: ASCORBIC ACID 500 MG TAB PO SCH (09:17)
[2018-04-27] MEDS: VENLAFAXINE HCL XR 37.5 MG CAP PO SCH ×2 (09:17→21:23)
[2018-04-27] MEDS: ENOXAPARIN SODIUM 60 MG/0.6 ML SQ SCH (09:17)
[2018-04-27] MEDS: FAMOTIDINE 20MG TAB 20 MG TAB PO SCH ×2 (09:17→21:23)
[2018-04-27] MEDS: ALLOPURINOL 100 MG TABLET PO SCH (09:17)
[2018-04-27] MEDS: FUROSEMIDE 20 MG TABLET PO SCH ×2 (09:18→17:05)
[2018-04-27] MEDS: METOCLOPRAMIDE 10 MG TABLET PO SCH ×2 (09:18→17:05)
[2018-04-27] MEDS: CARVEDILOL 6.25 MG TABLET PO SCH ×2 (09:18→21:22)
[2018-04-27] MEDS: PREDNISONE 10 MG TABLET PO SCH ×2 (09:18→21:23)
[2018-04-27] MEDS: INSULIN GLARGINE 100 UNITS/ML 10 ML VIAL SQ SCH (09:39)
[2018-04-27 12:07] VITALS: BP 123/65
[2018-04-27 15:25] VITALS: BP 117/60
[2018-04-27] MEDS: WARFARIN SODIUM 5 MG TAB PO SCH (17:06)
[2018-04-27] MEDS: ALPRAZOLAM 0.25 MG TABLET PO PRN (17:07)
[2018-04-27 19:20] VITALS: BP 134/77
[2018-04-27] MEDS: PYRIDOXINE HCL PO SCH (21:00)
[2018-04-27] MEDS: MELATONIN PO SCH (21:00)
[2018-04-27] MEDS: ATORVASTATIN CALCIUM 20 MG TABLET PO SCH (21:22)
[2018-04-27] MEDS: CELECOXIB 100 MG CAP PO SCH (21:23)
[2018-04-28] VITALS (7 sets, daily range): BP systolic 106–147; BP diastolic 55–76
[2018-04-28] MEDS: DOXYCYCLINE 100MG+NS 250ML 250 ML IV SCH ×2 (06:00→17:16)
[2018-04-28] MEDS: CEFEPIME HCL 1 GM VIAL IVP SCH ×2 (06:00→17:15)
[2018-04-28] MEDS: LEVOTHYROXINE 150 MCG TABLET PO SCH (06:31)
[2018-04-28] MEDS: LEVOTHYROXINE 112 MCG TABLET PO SCH (06:31)
[2018-04-28] MEDS: METOCLOPRAMIDE 10 MG TABLET PO SCH ×2 (06:31→17:14)
[2018-04-28] MEDS: INSULIN HUMULIN R 100 UNIT/ML 3ML SQ SCH ×4 (06:39→21:42)
[2018-04-28] MEDS: IPRATROPIUM/ALBUTEROL SULFATE 3 ML SOLUTION IH SCH ×3 (06:44→20:00)
[2018-04-28 07:27] LABS: INR 1.54 (0.85-1.15)
[2018-04-28] MEDS: FUROSEMIDE 20 MG TABLET PO SCH ×2 (08:00→17:14)
[2018-04-28] MEDS: ***HM***(Cholecalciferol (Vitamin D3) (Vitamin D3) 2,000 UNIT) PO SCH (08:04)
[2018-04-28] MEDS: LIRAGLUTIDE 1.8 MG SQ SCH (08:05)
[2018-04-28] MEDS: INSULIN GLARGINE 100 UNITS/ML 10 ML VIAL SQ SCH (09:00)
[2018-04-28] MEDS: VENLAFAXINE HCL XR 37.5 MG CAP PO SCH ×2 (10:13→21:09)
[2018-04-28] MEDS: SOTALOL HCL 80 MG TABLET PO SCH ×2 (10:13→21:08)
[2018-04-28] MEDS: ALLOPURINOL 100 MG TABLET PO SCH (10:14)
[2018-04-28] MEDS: PREDNISONE 10 MG TABLET PO SCH ×2 (10:14→21:08)
[2018-04-28] MEDS: ASCORBIC ACID 500 MG TAB PO SCH (10:14)
[2018-04-28] MEDS: CARVEDILOL 6.25 MG TABLET PO SCH ×2 (10:15→21:09)
[2018-04-28] MEDS: FAMOTIDINE 20MG TAB 20 MG TAB PO SCH ×2 (10:15→21:09)
[2018-04-28] MEDS: ENOXAPARIN SODIUM 60 MG/0.6 ML SQ SCH (10:16)
[2018-04-28] MEDS: WARFARIN SODIUM 5 MG TAB PO SCH (17:13)
[2018-04-28] MEDS: ALPRAZOLAM 0.25 MG TABLET PO PRN (18:03)
[2018-04-28] MEDS: PYRIDOXINE HCL PO SCH (21:00)
[2018-04-28] MEDS: MELATONIN PO SCH (21:00)
[2018-04-28] MEDS: CELECOXIB 100 MG CAP PO SCH (21:08)
[2018-04-28] MEDS: ATORVASTATIN CALCIUM 20 MG TABLET PO SCH (21:08)
[2018-04-29] MEDS: IPRATROPIUM/ALBUTEROL SULFATE 3 ML SOLUTION IH SCH ×4 (00:17→18:59)
[2018-04-29 03:31] VITALS: BP 122/65
[2018-04-29 04:41] LABS: HEMATOCRIT 32.4 % (36-48); MEAN CORPUSCULAR HEMOGLOBIN 32.4 pg (27.0-33.0); MEAN CORPUSCULAR HGB CONC 33.9 g/dL (32.0-36.0); MEAN CORPUSCULAR VOLUME 95.6 fL (79-99); PLATELET COUNT (AUTO) 188 K/uL (130-400); RED BLOOD CELL COUNT(AUTO) 3.39 MIL/uL (4.00-5.50); RED CELL DISTRIBUTION WIDTH 18.5 % (11.0-15.5); WHITE BLOOD COUNT (AUTO) 10.2 K/uL (4.8-10.8)
[2018-04-29 04:48] LABS: CREATININE 1.3 mg/dL (0.5-1.5); POTASSIUM 4.2 mmol/L (3.5-5.1)
[2018-04-29 04:57] LABS: B-TYPE NATRIURETIC PEPTIDE 1070 pg/mL (0-100)
[2018-04-29] MEDS: LEVOTHYROXINE 112 MCG TABLET PO SCH (06:49)
[2018-04-29] MEDS: METOCLOPRAMIDE 10 MG TABLET PO SCH ×2 (06:50→16:27)
[2018-04-29] MEDS: CEFEPIME HCL 1 GM VIAL IVP SCH (06:50)
[2018-04-29] MEDS: LEVOTHYROXINE 150 MCG TABLET PO SCH (06:50)
[2018-04-29] MEDS: DOXYCYCLINE 100MG+NS 250ML 250 ML IV SCH (06:50)
[2018-04-29] MEDS: INSULIN HUMULIN R 100 UNIT/ML 3ML SQ SCH ×3 (06:50→16:28)
[2018-04-29 08:26] VITALS: BP 141/88
[2018-04-29] MEDS: LIRAGLUTIDE 1.8 MG SQ SCH (09:00)
[2018-04-29] MEDS: ***HM***(Cholecalciferol (Vitamin D3) (Vitamin D3) 2,000 UNIT) PO SCH (09:00)
[2018-04-29] MEDS: FUROSEMIDE 20 MG TABLET PO SCH ×2 (09:01→16:27)
[2018-04-29] MEDS: PREDNISONE 10 MG TABLET PO SCH (09:01)
[2018-04-29] MEDS: CARVEDILOL 6.25 MG TABLET PO SCH (09:02)
[2018-04-29] MEDS: FAMOTIDINE 20MG TAB 20 MG TAB PO SCH (09:03)
[2018-04-29] MEDS: ASCORBIC ACID 500 MG TAB PO SCH (09:03)
[2018-04-29] MEDS: ENOXAPARIN SODIUM 60 MG/0.6 ML SQ SCH (09:09)
[2018-04-29] MEDS: INSULIN GLARGINE 100 UNITS/ML 10 ML VIAL SQ SCH (09:22)
[2018-04-29] MEDS: ALLOPURINOL 100 MG TABLET PO SCH (09:22)
[2018-04-29] MEDS: SOTALOL HCL 80 MG TABLET PO SCH (09:22)
[2018-04-29] MEDS: VENLAFAXINE HCL XR 37.5 MG CAP PO SCH (09:23)
[2018-04-29 11:49] VITALS: BP 121/59
[2018-04-29 11:53] LABS: INR 2.37 (0.85-1.15); PROTHROMBIN TIME 24.5 SEC (9.6-11.6)
[2018-04-29] MEDS: WARFARIN SODIUM 5 MG TAB PO SCH (16:27)
[2018-04-29 16:49] VITALS: BP 135/75
[2018-04-29] MEDS: ALPRAZOLAM 0.25 MG TABLET PO PRN (17:56)
[2018-05-21] MEDS ORDERED: CARV6.25 PEG (18:49)
[2018-05-21] MEDS ORDERED: PRED10TA3 PEG (18:49)
[2018-05-21] MEDS ORDERED: VENL150T3 PEG (18:49)
[2018-05-21] MEDS ORDERED: FURO-151 PEG (18:49)
[2018-05-21] MEDS ORDERED: WARF-57 PEG (18:49)
[2018-05-21] MEDS ORDERED: LEVO150T11 PEG (18:49)
[2018-05-21] MEDS ORDERED: LANS30TA10 PEG (18:49)
[2018-05-21] MEDS ORDERED: LEVO112T7 PEG (18:49)
[2018-05-21] MEDS ORDERED: CELE100C PEG (18:49)
[2018-05-21] MEDS ORDERED: MELA5TAB14 PEG (18:49)
[2018-05-21] MEDS ORDERED: INSLAN SQ (18:49)
[2018-05-21] MEDS ORDERED: HONE15GE TP (18:49)
[2018-05-21] MEDS ORDERED: SOTA80TA PEG (18:49)
[2018-05-21] MEDS ORDERED: IPRA3AMP24 IH (18:49)
== END 2018-04-29 19:54 | DRG 193 ==
LOC: EDH 17:45 → EDHIP 19:26 → 2BH 23:28 → 3BH 04-25 12:14
PROVIDERS: ADMIT Internal Medicine; ATTEND Internal Medicine
PROC: 5A09357 Assistance with Respiratory Ventilation, Less than 24 Consecutive Hours, Continuous Positive Airway Pressure (ICD-10-PCS; principal; 2018-04-23)
PROC: 5A09357 Assistance with Respiratory Ventilation, Less than 24 Consecutive Hours, Continuous Positive Airway Pressure (ICD-10-PCS; 2018-04-24)
DX: J18.9 Pneumonia, unspecified organism (principal); I50.23 Acute on chronic systolic (congestive) heart failure; J96.90 Respiratory failure, unspecified, unspecified whether with hypoxia or hypercapnia; J44.0 Chronic obstructive pulmonary disease with (acute) lower respiratory infection; J44.1 Chronic obstructive pulmonary disease with (acute) exacerbation; E87.2 Acidosis; I42.9 Cardiomyopathy, unspecified; J84.10 Pulmonary fibrosis, unspecified; J18.0 Bronchopneumonia, unspecified organism; I11.0 Hypertensive heart disease with heart failure; L89.159 Pressure ulcer of sacral region, unspecified stage; R79.1 Abnormal coagulation profile; R13.10 Dysphagia, unspecified; M19.90 Unspecified osteoarthritis, unspecified site; F41.9 Anxiety disorder, unspecified; I44.30 Unspecified atrioventricular block; I25.10 Atherosclerotic heart disease of native coronary artery without angina pectoris; E11.649 Type 2 diabetes mellitus with hypoglycemia without coma; E78.5 Hyperlipidemia, unspecified; E03.9 Hypothyroidism, unspecified; F32.9 Major depressive disorder, single episode, unspecified; I48.2 Chronic atrial fibrillation; M32.9 Systemic lupus erythematosus, unspecified; Z79.4 Long term (current) use of insulin; Z90.49 Acquired absence of other specified parts of digestive tract; Z95.2 Presence of prosthetic heart valve; Z79.01 Long term (current) use of anticoagulants; Z91.19 Patient's noncompliance with other medical treatment and regimen; Z88.6 Allergy status to analgesic agent; Z88.8 Allergy status to other drugs, medicaments and biological substances; Z95.810 Presence of automatic (implantable) cardiac defibrillator
CPT/HCPCS: 36415; 36600; 71045; 71250; 80048; 80053; 82803; 82948; 83605; 83735; 83880; 84100; 84443; 84484; 85025; 85027; 85610; 85730; 87040; 92610; 93005; 94640; 94660; 94664; 97039; A4218; J0692; J0696; J1650; J1815; J1940; J2543; J2930; J3370; J3475; J3490; J7512

== ENCOUNTER 2018-05-02 09:11 | Inpatient (IN) | payer MEDICARE ==
[~2018-05-02] VITALS: Ht 170.2 cm; Wt 67.3 kg
[~2018-05-02 09:11] MED LIST changes: +COLL1POW2 MC; -DULA0.75 SQ; -FURO80TA3 PO; +INSLAN SQ; +INSU100V3 IJ; +IPRA3AMP4 IH; +LIRA3PEN SQ; +PROM50TA3 PO; +TIOT18CA3 IH; +WARF5TAB76 PO
[2018-05-02] MEDS ORDERED: SODIUM CHLORIDE 0.9% 1000ML 1,000 ML IV ONE (09:24)
[2018-05-02] MEDS ORDERED: ACETAMINOPHEN 650 MG SUPPOSITORY RC ONE (09:25)
[2018-05-02 09:36] LABS: BASOPHILS % (AUTO) 0.4 % (0.0-5.0); EOSINOPHILS % (AUTO) 0.1 % (0.0-8.0); HEMATOCRIT 41.2 % (36-48); LYMPHOCYTES % (AUTO) 15.3 % (21.0-51.0); MEAN CORPUSCULAR HGB CONC 32.6 g/dL (32.0-36.0); MEAN CORPUSCULAR VOLUME 95.3 fL (79-99); MONOCYTES % (AUTO) 3.4 % (3.0-13.0); NEUTROPHILS % (AUTO) 80.8 % (40.0-77.0); NUCLEATED RED BLOOD CELLS 0.1 % (0.0-0.19); PLATELET COUNT (AUTO) 259 K/uL (130-400); RED BLOOD CELL COUNT(AUTO) 4.33 MIL/uL (4.00-5.50); RED CELL DISTRIBUTION WIDTH 19.6 % (11.0-15.5); WHITE BLOOD COUNT (AUTO) 15.1 K/uL (4.8-10.8)
[2018-05-02] MEDS ORDERED: ZOSYN 3.375GM+NS 50ML 50 ML IV ONE ×2 (09:48→19:01)
[2018-05-02 09:58] LABS: APPEARANCE,URINE Clear (CLEAR); BILIRUBIN,URINE Negative (NEGATIVE); COLOR,URINE Yellow (YELLOW); GLUCOSE, URINE (UA) Negative (NEGATIVE); KETONES,URINE Negative (NEGATIVE); LEUKOCYTE ESTERASE ,URINE Negative (NEGATIVE); NITRATE,URINE Negative (NEGATIVE); OCCULT BLOOD,URINE Negative (NEGATIVE); PROTEIN,URINE POS 2+ (NEGATIVE); UROBILINOGEN,URINE 0.2 mg/dL (0.2-1.0)
[2018-05-02 10:04] LABS: INR 3.04 (0.85-1.15); PARTIAL THROMBOPLASTIN TIME 35.5 SEC (26.3-35.5); PROTHROMBIN TIME 31.2 SEC (9.6-11.6)
[2018-05-02 10:09] LABS: AMORPHOUS SEDIMENT,UR Moderate /LPF (None Seen); BACTERIA,URINE Rare /HPF (None Seen); RBC,URINE 0-1 /HPF (0-1); SQUAMOUS EPITHELIAL CELL,UR Rare /HPF (0-2); WBC,URINE 0-1 /HPF (0-1)
[2018-05-02 10:58] LABS: CREATININE 1.6 mg/dL (0.5-1.5)
[2018-05-02 10:59] LABS: BILIRUBIN,TOTAL 0.8 mg/dL (0.2-1.0)
[2018-05-02 11:14] LABS: CREATINE KINASE MB 0.7 ng/mL (0.5-3.6); POTASSIUM 3.9 mmol/L (3.5-5.1); TOTAL PROTEIN, SERUM 7.4 g/dL (6.0-8.3)
[2018-05-02 11:15] LABS: ALBUMIN 2.5 g/dL (3.5-5.0)
[2018-05-02 11:16] LABS: TROPONIN I 0.55 ng/mL (0.00-0.06)
[2018-05-02 18:08] VITALS: BP 113/74
[2018-05-02] MEDS ORDERED: SODIUM CHLORIDE 0.9% 10 ML VIAL IVP PRN (18:45)
[2018-05-02] MEDS ORDERED: ALPRAZOLAM 0.25 MG TABLET PO PRN (19:00)
[2018-05-02] MEDS ORDERED: PROMETHAZINE HCL 25 MG TABLET PO PRN (19:00)
[2018-05-02] MEDS ORDERED: PHARMACY COMMUNICATION MISC SCH (19:00)
[2018-05-02] MEDS ORDERED: BENZONATATE 100 MG CAPSULE PO PRN (19:00)
[2018-05-02] MEDS ORDERED: NAPROXEN 250 MG TAB PO PRN (19:00)
[2018-05-02] MEDS: ZOSYN 3.375GM+NS 50ML 50 ML IV SCH ×3 (19:00→21:00)
[2018-05-02] MEDS ORDERED: SODIUM CHLORIDE 0.9% 250 ML IV ONE (19:02)
[2018-05-02] MEDS ORDERED: ACET-2247 PO (19:04)
[2018-05-02 19:10] VITALS: BP 137/75
[2018-05-02] MEDS ORDERED: ACETAMINOPHEN 650 MG SUPPOSITORY RC PRN (20:00)
[2018-05-02] MEDS ORDERED: RENAL DOSE IV PRN (20:00)
[2018-05-02 20:05] VITALS: BP 141/64
[2018-05-02] MEDS ORDERED: VANCOMYCIN 1GM+NS 250ML 250 ML IV SCH (20:33)
[2018-05-02] MEDS ORDERED: VENLAFAXINE HCL XR 37.5 MG CAP PO SCH (21:00)
[2018-05-02] MEDS ORDERED: CELECOXIB 100 MG CAP PO SCH (21:00)
[2018-05-02] MEDS ORDERED: MELATONIN PO SCH (21:00)
[2018-05-02] MEDS ORDERED: METOCLOPRAMIDE 10 MG TABLET PO SCH (21:00)
[2018-05-02] MEDS ORDERED: PYRIDOXINE HCL PO SCH (21:00)
[2018-05-02] MEDS ORDERED: ATORVASTATIN CALCIUM 20 MG TABLET PO SCH (21:00)
[2018-05-02] MEDS ORDERED: FUROSEMIDE 40 MG TABLET PO SCH (21:00)
[2018-05-02] MEDS: IPRATROPIUM/ALBUTEROL SULFATE 3 ML SOLUTION IH SCH (21:57)
[2018-05-02] MEDS: METOCLOPRAMIDE 10 MG/2 ML VIAL IVP SCH (22:19)
[2018-05-02] MEDS: SOTALOL HCL 80 MG TABLET PO SCH (22:19)
[2018-05-02] MEDS: METHYLPREDNISOLONE SOD SUCC 40MG/ML 1ML IVP SCH (22:19)
[2018-05-02] MEDS: CARVEDILOL 6.25 MG TABLET PO SCH (22:19)
[2018-05-02 23:29] VITALS: BP 144/60
[2018-05-03 03:38] LABS: HEMATOCRIT 36.1 % (36-48); MEAN CORPUSCULAR HEMOGLOBIN 31.7 pg (27.0-33.0); MEAN CORPUSCULAR HGB CONC 33.1 g/dL (32.0-36.0); MEAN CORPUSCULAR VOLUME 95.8 fL (79-99); PLATELET COUNT (AUTO) 185 K/uL (130-400); RED BLOOD CELL COUNT(AUTO) 3.77 MIL/uL (4.00-5.50); RED CELL DISTRIBUTION WIDTH 19.3 % (11.0-15.5); WHITE BLOOD COUNT (AUTO) 15.9 K/uL (4.8-10.8)
[2018-05-03 03:46] LABS: INR 2.17 (0.85-1.15); PROTHROMBIN TIME 22.4 SEC (9.6-11.6)
[2018-05-03 03:59] LABS: BILIRUBIN,TOTAL 0.9 mg/dL (0.2-1.0); CREATININE 1.4 mg/dL (0.5-1.5); THYROID STIMULATING HORMONE 1.7 uIU/mL (0.36-3.74); TOTAL PROTEIN, SERUM 6.2 g/dL (6.0-8.3)
[2018-05-03 04:09] VITALS: BP 138/67
[2018-05-03] MEDS: LEVOTHYROXINE 112 MCG TABLET PO SCH (06:10)
[2018-05-03] MEDS: IPRATROPIUM/ALBUTEROL SULFATE 3 ML SOLUTION IH SCH ×4 (06:12→18:49)
[2018-05-03] MEDS: METOCLOPRAMIDE 10 MG/2 ML VIAL IVP SCH ×4 (06:28→21:21)
[2018-05-03] MEDS ORDERED: POTASSIUM CHLORIDE 10% ELIXIR 20 MEQ/15 ML UDCUP PO PRN (06:45)
[2018-05-03] MEDS ORDERED: LIDOCAINE HCL-MPF 1% 2ML VIAL IVP PRN (06:45)
[2018-05-03] MEDS ORDERED: POTASSIUM CHLORIDE 20 MEQ ERTAB PO PRN (06:45)
[2018-05-03] MEDS ORDERED: PANTOPRAZOLE SODIUM 40 MG TABLET.DR PO SCH (07:30)
[2018-05-03 07:32] VITALS: BP 123/64
[2018-05-03] MEDS: CARVEDILOL 6.25 MG TABLET PO SCH ×2 (08:33→21:21)
[2018-05-03] MEDS: PANTOPRAZOLE SODIUM 40 MG TABLET.DR PO SCH (08:33)
[2018-05-03] MEDS: METHYLPREDNISOLONE SOD SUCC 40MG/ML 1ML IVP SCH ×2 (08:34→21:21)
[2018-05-03] MEDS: SOTALOL HCL 80 MG TABLET PO SCH ×2 (08:34→21:20)
[2018-05-03] MEDS ORDERED: ASCORBIC ACID 500 MG TAB PO SCH (09:00)
[2018-05-03] MEDS ORDERED: SUB TO IPRATROPIUM 0.5MG/2.5ML PER P&T IH SCH (09:00)
[2018-05-03] MEDS ORDERED: VENLAFAXINE HCL XR 37.5 MG CAP PO SCH (09:00)
[2018-05-03] MEDS ORDERED: INSULIN GLARGINE 100 UNITS/ML 10 ML VIAL SQ SCH (09:00)
[2018-05-03] MEDS ORDERED: PREDNISONE 10 MG TABLET PO SCH (09:00)
[2018-05-03] MEDS ORDERED: LIRAGLUTIDE 1.8 MG SQ SCH (09:00)
[2018-05-03] MEDS ORDERED: COLLAGENASE CLOSTRIDIUM HIST MC SCH (09:00)
[2018-05-03] MEDS ORDERED: LISINOPRIL 20 MG TABLET PO SCH (09:00)
[2018-05-03] MEDS ORDERED: ***HM***(Cholecalciferol (Vitamin D3) (Vitamin D3) 2,000 UNIT) PO SCH (09:00)
[2018-05-03] MEDS: ZOSYN 3.375GM+NS 50ML 50 ML IV SCH ×2 (09:25→21:21)
[2018-05-03] MEDS: VANCOMYCIN 500MG+NS 100ML 100 ML IV SCH (09:25)
[2018-05-03 11:00] VITALS: BP 120/59
[2018-05-03] MEDS ORDERED: FURO40TA5 PO (13:14)
[2018-05-03] MEDS ORDERED: FURO80TA3 PO (13:14)
[2018-05-03] MEDS: LACTATED RINGERS 1000ML 1,000 ML IV SCH (14:58)
[2018-05-03] MEDS ORDERED: WARFARIN SODIUM 5 MG TAB PO SCH ×2 (16:00→21:00)
[2018-05-03 16:31] VITALS: BP 113/84
[2018-05-03 19:20] VITALS: BP 127/70
[2018-05-03] MEDS: CELECOXIB 100 MG CAP PO SCH (21:20)
[2018-05-03] MEDS: VENLAFAXINE HCL XR 37.5 MG CAP PO SCH (21:20)
[2018-05-03] MEDS: INSULIN HUMULIN R 100 UNIT/ML 3ML SQ SCH (22:58)
[2018-05-03 23:50] VITALS: BP 109/75
[2018-05-04 03:33] VITALS: BP 124/61
[2018-05-04 04:00] LABS: BASOPHILS % (AUTO) 0.1 % (0.0-5.0); HEMATOCRIT 34.9 % (36-48); LYMPHOCYTES % (AUTO) 5.8 % (21.0-51.0); MEAN CORPUSCULAR HEMOGLOBIN 31.2 pg (27.0-33.0); MEAN CORPUSCULAR HGB CONC 32.1 g/dL (32.0-36.0); MEAN CORPUSCULAR VOLUME 97.2 fL (79-99); MONOCYTES % (AUTO) 1.4 % (3.0-13.0); NEUTROPHILS % (AUTO) 92.7 % (40.0-77.0); NUCLEATED RED BLOOD CELLS 0.1 % (0.0-0.19); PLATELET COUNT (AUTO) 167 K/uL (130-400); RED BLOOD CELL COUNT(AUTO) 3.59 MIL/uL (4.00-5.50); RED CELL DISTRIBUTION WIDTH 19.6 % (11.0-15.5); WHITE BLOOD COUNT (AUTO) 11.6 K/uL (4.8-10.8)
[2018-05-04 04:12] LABS: INR 2.79 (0.85-1.15); PROTHROMBIN TIME 28.7 SEC (9.6-11.6)
[2018-05-04 04:13] LABS: B-TYPE NATRIURETIC PEPTIDE 945 pg/mL (0-100)
[2018-05-04 04:18] LABS: ALBUMIN 1.8 g/dL (3.5-5.0); BILIRUBIN,TOTAL 0.7 mg/dL (0.2-1.0); CREATININE 1.4 mg/dL (0.5-1.5); MAGNESIUM 1.7 mg/dL (1.80-2.40); POTASSIUM 3.4 mmol/L (3.5-5.1); TOTAL PROTEIN, SERUM 5.5 g/dL (6.0-8.3)
[2018-05-04] MEDS: LEVOTHYROXINE 150 MCG TABLET PO SCH (04:44)
[2018-05-04] MEDS: POTASSIUM CHLORIDE 20MEQ/100ML 100 ML IV PRN ×2 (06:05→16:05)
[2018-05-04] MEDS: LEVOTHYROXINE 112 MCG TABLET PO SCH (06:06)
[2018-05-04] MEDS: METOCLOPRAMIDE 10 MG/2 ML VIAL IVP SCH ×4 (06:06→21:42)
[2018-05-04] MEDS: IPRATROPIUM/ALBUTEROL SULFATE 3 ML SOLUTION IH SCH ×4 (06:10→18:04)
[2018-05-04] MEDS: LACTATED RINGERS 1000ML 1,000 ML IV SCH ×2 (06:20→22:40)
[2018-05-04] MEDS: INSULIN HUMULIN R 100 UNIT/ML 3ML SQ SCH ×4 (06:20→21:43)
[2018-05-04 07:42] VITALS: BP 129/66
[2018-05-04] MEDS ORDERED: VENLAFAXINE HCL XR 150 MG CAP PO SCH (09:00)
[2018-05-04] MEDS: PANTOPRAZOLE SODIUM 40 MG TABLET.DR PO SCH (09:03)
[2018-05-04] MEDS: CARVEDILOL 6.25 MG TABLET PO SCH ×2 (09:03→21:42)
[2018-05-04] MEDS: SOTALOL HCL 80 MG TABLET PO SCH ×2 (09:03→21:41)
[2018-05-04] MEDS: ZOSYN 3.375GM+NS 50ML 50 ML IV SCH ×2 (09:03→21:42)
[2018-05-04] MEDS: VANCOMYCIN 500MG+NS 100ML 100 ML IV SCH (09:03)
[2018-05-04] MEDS: METHYLPREDNISOLONE SOD SUCC 40MG/ML 1ML IVP SCH ×2 (09:04→21:42)
[2018-05-04] MEDS: VENLAFAXINE HCL XR 37.5 MG CAP PO SCH ×2 (09:10→21:41)
[2018-05-04 11:20] VITALS: BP 104/57
[2018-05-04] MEDS ORDERED: MAGNESIUM 2GM PREMIX 50ML 50 ML IV PRN (14:45)
[2018-05-04] MEDS: WARFARIN SODIUM 5 MG TAB PO SCH (16:06)
[2018-05-04 16:21] VITALS: BP 122/66
[2018-05-04 19:32] VITALS: BP 102/55
[2018-05-04] MEDS: CELECOXIB 100 MG CAP PO SCH (21:41)
[2018-05-04 23:38] VITALS: BP 101/53
[2018-05-05 03:54] LABS: BASOPHILS % (AUTO) 0.4 % (0.0-5.0); EOSINOPHILS % (AUTO) 0.2 % (0.0-8.0); HEMATOCRIT 33.2 % (36-48); LYMPHOCYTES % (AUTO) 6.9 % (21.0-51.0); MEAN CORPUSCULAR HEMOGLOBIN 31.5 pg (27.0-33.0); MEAN CORPUSCULAR HGB CONC 32.2 g/dL (32.0-36.0); MEAN CORPUSCULAR VOLUME 97.8 fL (79-99); MONOCYTES % (AUTO) 1.8 % (3.0-13.0); NEUTROPHILS % (AUTO) 90.7 % (40.0-77.0); NUCLEATED RED BLOOD CELLS 0.2 % (0.0-0.19); PLATELET COUNT (AUTO) 145 K/uL (130-400); RED CELL DISTRIBUTION WIDTH 19.9 % (11.0-15.5); WHITE BLOOD COUNT (AUTO) 10.9 K/uL (4.8-10.8)
[2018-05-05 03:56] VITALS: BP 108/58
[2018-05-05 04:00] LABS: CREATININE 1.4 mg/dL (0.5-1.5); MAGNESIUM 2.7 mg/dL (1.80-2.40); POTASSIUM 5.1 mmol/L (3.5-5.1)
[2018-05-05 04:06] LABS: INR 2.58 (0.85-1.15); PROTHROMBIN TIME 26.6 SEC (9.6-11.6)
[2018-05-05] MEDS: IPRATROPIUM/ALBUTEROL SULFATE 3 ML SOLUTION IH SCH ×4 (06:01→18:33)
[2018-05-05] MEDS: METOCLOPRAMIDE 10 MG/2 ML VIAL IVP SCH ×4 (06:20→21:07)
[2018-05-05] MEDS: LEVOTHYROXINE 150 MCG TABLET PO SCH (06:20)
[2018-05-05] MEDS: INSULIN HUMULIN R 100 UNIT/ML 3ML SQ SCH ×4 (06:33→21:22)
[2018-05-05 07:00] VITALS: BP 121/79
[2018-05-05] MEDS: VANCOMYCIN 500MG+NS 100ML 100 ML IV SCH (08:23)
[2018-05-05] MEDS: ZOSYN 3.375GM+NS 50ML 50 ML IV SCH ×2 (09:38→21:07)
[2018-05-05] MEDS: METHYLPREDNISOLONE SOD SUCC 40MG/ML 1ML IVP SCH ×2 (09:38→21:07)
[2018-05-05] MEDS: SOTALOL HCL 80 MG TABLET PO SCH ×2 (09:39→21:06)
[2018-05-05] MEDS: PANTOPRAZOLE SODIUM 40 MG TABLET.DR PO SCH (09:39)
[2018-05-05] MEDS: VENLAFAXINE HCL XR 37.5 MG CAP PO SCH ×2 (09:39→21:07)
[2018-05-05] MEDS: CARVEDILOL 6.25 MG TABLET PO SCH ×2 (09:40→21:06)
[2018-05-05 11:00] VITALS: BP 125/59
[2018-05-05 16:00] VITALS: BP 120/63
[2018-05-05] MEDS: WARFARIN SODIUM 5 MG TAB PO SCH (16:26)
[2018-05-05 19:26] VITALS: BP 135/59
[2018-05-05] MEDS: CELECOXIB 100 MG CAP PO SCH (21:06)
[2018-05-06 00:08] VITALS: BP 132/74
[2018-05-06 03:49] VITALS: BP 128/64
[2018-05-06 04:00] LABS: INR 2.77 (0.85-1.15); PROTHROMBIN TIME 28.5 SEC (9.6-11.6)
[2018-05-06] MEDS: IPRATROPIUM/ALBUTEROL SULFATE 3 ML SOLUTION IH SCH ×4 (06:13→18:17)
[2018-05-06] MEDS: METOCLOPRAMIDE 10 MG/2 ML VIAL IVP SCH ×4 (06:17→22:48)
[2018-05-06] MEDS: LEVOTHYROXINE 112 MCG TABLET PO SCH (06:17)
[2018-05-06] MEDS: INSULIN HUMULIN R 100 UNIT/ML 3ML SQ SCH ×4 (06:18→22:54)
[2018-05-06 07:00] VITALS: BP 138/67
[2018-05-06] MEDS: VANCOMYCIN 500MG+NS 100ML 100 ML IV SCH (08:06)
[2018-05-06] MEDS: ACETAMINOPHEN 325 MG TAB PO PRN (08:37)
[2018-05-06 08:38] LABS: HEMATOCRIT 31.1 % (36-48); MEAN CORPUSCULAR HEMOGLOBIN 32.9 pg (27.0-33.0); MEAN CORPUSCULAR HGB CONC 33.6 g/dL (32.0-36.0); MEAN CORPUSCULAR VOLUME 97.9 fL (79-99); NUCLEATED RED BLOOD CELLS 0.1 % (0.0-0.19); PLATELET COUNT (AUTO) 121 K/uL (130-400); RED BLOOD CELL COUNT(AUTO) 3.18 MIL/uL (4.00-5.50); RED CELL DISTRIBUTION WIDTH 19.4 % (11.0-15.5); WHITE BLOOD COUNT (AUTO) 9.5 K/uL (4.8-10.8)
[2018-05-06 08:55] LABS: INR 2.77 (0.85-1.15); PARTIAL THROMBOPLASTIN TIME 34.2 SEC (26.3-35.5); PROTHROMBIN TIME 28.5 SEC (9.6-11.6)
[2018-05-06 08:56] LABS: BILIRUBIN,TOTAL 0.5 mg/dL (0.2-1.0); CREATININE 1.3 mg/dL (0.5-1.5); POTASSIUM 3.6 mmol/L (3.5-5.1); TOTAL PROTEIN, SERUM 5.7 g/dL (6.0-8.3)
[2018-05-06] MEDS: ZOSYN 3.375GM+NS 50ML 50 ML IV SCH ×2 (10:39→22:48)
[2018-05-06] MEDS: METHYLPREDNISOLONE SOD SUCC 40MG/ML 1ML IVP SCH ×2 (10:39→22:47)
[2018-05-06] MEDS: VENLAFAXINE HCL XR 37.5 MG CAP PO SCH ×2 (10:40→21:00)
[2018-05-06] MEDS: CARVEDILOL 6.25 MG TABLET PO SCH ×3 (10:41→22:49)
[2018-05-06] MEDS: SOTALOL HCL 80 MG TABLET PO SCH ×3 (10:41→22:48)
[2018-05-06] MEDS: PANTOPRAZOLE SODIUM 40 MG TABLET.DR PO SCH (10:41)
[2018-05-06 11:00] VITALS: BP 119/54
[2018-05-06 16:00] VITALS: BP 129/62
[2018-05-06] MEDS: WARFARIN SODIUM 5 MG TAB PO SCH (16:55)
[2018-05-06 19:40] VITALS: BP 111/55
[2018-05-06] MEDS: CELECOXIB 100 MG CAP PO SCH (21:00)
[2018-05-07] VITALS (7 sets, daily range): BP systolic 96–149; BP diastolic 44–86
[2018-05-07] MEDS: LEVOTHYROXINE 150 MCG TABLET PO SCH (05:30)
[2018-05-07] MEDS: IPRATROPIUM/ALBUTEROL SULFATE 3 ML SOLUTION IH SCH ×4 (05:56→18:10)
[2018-05-07] MEDS: METOCLOPRAMIDE 10 MG/2 ML VIAL IVP SCH ×4 (08:00→21:49)
[2018-05-07] MEDS: INSULIN HUMULIN R 100 UNIT/ML 3ML SQ SCH ×4 (08:02→22:54)
[2018-05-07] MEDS: SOTALOL HCL 80 MG TABLET PO SCH ×2 (09:00→20:16)
[2018-05-07] MEDS: CARVEDILOL 6.25 MG TABLET PO SCH ×2 (09:00→20:17)
[2018-05-07] MEDS: PANTOPRAZOLE SODIUM 40 MG TABLET.DR PO SCH (09:00)
[2018-05-07] MEDS: VENLAFAXINE HCL XR 37.5 MG CAP PO SCH ×2 (09:00→20:18)
[2018-05-07] MEDS: METHYLPREDNISOLONE SOD SUCC 40MG/ML 1ML IVP SCH ×2 (11:12→21:48)
[2018-05-07] MEDS: VANCOMYCIN 500MG+NS 100ML 100 ML IV SCH (11:12)
[2018-05-07] MEDS: ZOSYN 3.375GM+NS 50ML 50 ML IV SCH ×2 (12:19→23:04)
[2018-05-07] MEDS: DEXTROSE 5 %-0.45 % NACL 1,000 ML IV SCH ×2 (12:21→18:37)
[2018-05-07] MEDS: LORAZEPAM 2 MG/ML 1 ML VIAL IVP PRN (14:58)
[2018-05-07] MEDS: CELECOXIB 100 MG CAP PO SCH (20:17)
[2018-05-07] MEDS ORDERED: VANCOMYCIN 500MG+NS 100ML 100 ML IV SCH (21:00)
[2018-05-08 03:50] LABS: HEMATOCRIT 34.3 % (36-48); MEAN CORPUSCULAR VOLUME 100.1 fL (79-99); PLATELET COUNT (AUTO) 123 K/uL (130-400); RED BLOOD CELL COUNT(AUTO) 3.43 MIL/uL (4.00-5.50); RED CELL DISTRIBUTION WIDTH 20.1 % (11.0-15.5); WHITE BLOOD COUNT (AUTO) 11.4 K/uL (4.8-10.8)
[2018-05-08 04:03] LABS: PARTIAL THROMBOPLASTIN TIME 41.3 SEC (26.3-35.5)
[2018-05-08 04:11] LABS: BILIRUBIN,TOTAL 0.6 mg/dL (0.2-1.0); CREATININE 1.1 mg/dL (0.5-1.5); POTASSIUM 3.5 mmol/L (3.5-5.1); TOTAL PROTEIN, SERUM 5.9 g/dL (6.0-8.3)
[2018-05-08 04:15] VITALS: BP 139/77
[2018-05-08 04:19] LABS: PROTHROMBIN TIME 54.9 SEC (9.6-11.6)
[2018-05-08 04:20] LABS: INR 5.4 (0.85-1.15)
[2018-05-08] MEDS: IPRATROPIUM/ALBUTEROL SULFATE 3 ML SOLUTION IH SCH ×4 (05:51→18:49)
[2018-05-08] MEDS: LEVOTHYROXINE 112 MCG TABLET PO SCH (06:02)
[2018-05-08] MEDS: INSULIN HUMULIN R 100 UNIT/ML 3ML SQ SCH ×4 (06:40→21:00)
[2018-05-08] MEDS: METOCLOPRAMIDE 10 MG/2 ML VIAL IVP SCH ×4 (06:43→21:31)
[2018-05-08] MEDS: DEXTROSE 5 %-0.45 % NACL 1,000 ML IV SCH ×4 (06:43→19:15)
[2018-05-08 07:36] VITALS: BP 144/73
[2018-05-08] MEDS: CARVEDILOL 6.25 MG TABLET PO SCH ×2 (07:52→21:00)
[2018-05-08] MEDS: PANTOPRAZOLE SODIUM 40 MG TABLET.DR PO SCH (07:52)
[2018-05-08] MEDS: VENLAFAXINE HCL XR 37.5 MG CAP PO SCH ×2 (07:52→21:00)
[2018-05-08] MEDS: SOTALOL HCL 80 MG TABLET PO SCH ×2 (07:52→21:00)
[2018-05-08] MEDS: METHYLPREDNISOLONE SOD SUCC 40MG/ML 1ML IVP SCH ×2 (07:59→21:31)
[2018-05-08] MEDS ORDERED: PHYTONADIONE 10 MG/1 ML AMP SQ SCH (08:00)
[2018-05-08] MEDS: VANCOMYCIN 500MG+NS 100ML 100 ML IV SCH (08:35)
[2018-05-08] MEDS: ZOSYN 3.375GM+NS 50ML 50 ML IV SCH ×2 (09:55→21:30)
[2018-05-08 12:00] VITALS: BP 97/53
[2018-05-08] MEDS: LORAZEPAM 2 MG/ML 1 ML VIAL IVP PRN (12:30)
[2018-05-08] MEDS ORDERED: PHYTONADIONE 10 MG/1 ML AMP IV SCH (15:45)
[2018-05-08 16:00] VITALS: BP 124/63
[2018-05-08] MEDS ORDERED: PHYTONADIONE 10 MG in SODIUM CHLORIDE 0.9% 50 ML IV ONE (17:00)
[2018-05-08 19:41] VITALS: BP 128/57
[2018-05-08] MEDS ORDERED: LORAZEPAM 2 MG/ML 1 ML VIAL IVP PRN (20:54)
[2018-05-08] MEDS: CELECOXIB 100 MG CAP PO SCH (21:00)
[2018-05-08 23:40] VITALS: BP 140/81
[2018-05-09] VITALS (20 sets, daily range): BP systolic 124–172; BP diastolic 61–86
[2018-05-09 04:00] LABS: HEMATOCRIT 33.6 % (36-48); MEAN CORPUSCULAR HEMOGLOBIN 31.3 pg (27.0-33.0); MEAN CORPUSCULAR HGB CONC 31.4 g/dL (32.0-36.0); MEAN CORPUSCULAR VOLUME 99.9 fL (79-99); NUCLEATED RED BLOOD CELLS 0.1 % (0.0-0.19); PLATELET COUNT (AUTO) 115 K/uL (130-400); RED BLOOD CELL COUNT(AUTO) 3.36 MIL/uL (4.00-5.50); RED CELL DISTRIBUTION WIDTH 19.6 % (11.0-15.5)
[2018-05-09 04:06] LABS: INR 1.27 (0.85-1.15); PARTIAL THROMBOPLASTIN TIME 31.3 SEC (26.3-35.5); PROTHROMBIN TIME 13.3 SEC (9.6-11.6)
[2018-05-09 04:13] LABS: ALBUMIN 1.9 g/dL (3.5-5.0); BILIRUBIN,TOTAL 0.7 mg/dL (0.2-1.0); POTASSIUM 3.3 mmol/L (3.5-5.1); TOTAL PROTEIN, SERUM 5.8 g/dL (6.0-8.3)
[2018-05-09] MEDS: LEVOTHYROXINE 150 MCG TABLET PO SCH (04:54)
[2018-05-09] MEDS: IPRATROPIUM/ALBUTEROL SULFATE 3 ML SOLUTION IH SCH ×4 (06:17→18:19)
[2018-05-09] MEDS: INSULIN HUMULIN R 100 UNIT/ML 3ML SQ SCH ×3 (06:22→16:39)
[2018-05-09] MEDS: METOCLOPRAMIDE 10 MG/2 ML VIAL IVP SCH ×4 (06:45→20:00)
[2018-05-09] MEDS: POTASSIUM CHLORIDE 20MEQ/100ML 100 ML IV PRN (07:01)
[2018-05-09] MEDS: SOTALOL HCL 80 MG TABLET PO SCH ×2 (09:00→20:00)
[2018-05-09] MEDS: VENLAFAXINE HCL XR 37.5 MG CAP PO SCH ×2 (09:00→19:58)
[2018-05-09] MEDS: PANTOPRAZOLE SODIUM 40 MG TABLET.DR PO SCH (09:00)
[2018-05-09] MEDS: CARVEDILOL 6.25 MG TABLET PO SCH ×2 (09:00→20:01)
[2018-05-09] MEDS: ZOSYN 3.375GM+NS 50ML 50 ML IV SCH ×2 (10:09→19:59)
[2018-05-09] MEDS: VANCOMYCIN 500MG+NS 100ML 100 ML IV SCH (10:09)
[2018-05-09] MEDS: METHYLPREDNISOLONE SOD SUCC 40MG/ML 1ML IVP SCH ×2 (10:09→20:00)
[2018-05-09] MEDS: DEXTROSE 5 %-0.45 % NACL 1,000 ML IV SCH (10:09)
[2018-05-09] MEDS ORDERED: PROPOFOL 10 MG/ML 20ML VIAL IV ONE (12:10)
[2018-05-09] MEDS ORDERED: GLYCOPYRROLATE 0.2 MG/ML 5 ML VIAL ONE (12:10)
[2018-05-09] MEDS ORDERED: KETAMINE 50MG/ML SYRINGE 50 MG/ML DISP.SYRIN IV ONE (13:17)
[2018-05-09] MEDS: CELECOXIB 100 MG CAP PO SCH (20:00)
[2018-05-10 00:42] VITALS: BP 119/75
[2018-05-10] MEDS: INSULIN HUMULIN R 100 UNIT/ML 3ML SQ SCH ×4 (02:47→17:55)
[2018-05-10 04:03] VITALS: BP 127/66
[2018-05-10] MEDS: IPRATROPIUM/ALBUTEROL SULFATE 3 ML SOLUTION IH SCH ×4 (06:21→18:18)
[2018-05-10] MEDS: LEVOTHYROXINE 112 MCG TABLET PO SCH (06:24)
[2018-05-10] MEDS: METOCLOPRAMIDE 10 MG/2 ML VIAL IVP SCH ×4 (06:24→19:55)
[2018-05-10 07:48] VITALS: BP 109/61
[2018-05-10] MEDS: VANCOMYCIN 500MG+NS 100ML 100 ML IV SCH (08:23)
[2018-05-10] MEDS: DEXTROSE 5 %-0.45 % NACL 1,000 ML IV SCH (09:11)
[2018-05-10] MEDS: METHYLPREDNISOLONE SOD SUCC 40MG/ML 1ML IVP SCH ×2 (09:12→19:55)
[2018-05-10] MEDS: ZOSYN 3.375GM+NS 50ML 50 ML IV SCH ×2 (09:12→19:55)
[2018-05-10] MEDS: VENLAFAXINE HCL XR 37.5 MG CAP PO SCH (09:13)
[2018-05-10] MEDS: SOTALOL HCL 80 MG TABLET PO SCH ×2 (09:15→19:56)
[2018-05-10] MEDS: CARVEDILOL 6.25 MG TABLET PO SCH ×2 (09:15→19:58)
[2018-05-10] MEDS: PANTOPRAZOLE SODIUM 40 MG TABLET.DR PO SCH (09:16)
[2018-05-10 11:00] VITALS: BP 146/71
[2018-05-10 12:19] LABS: BASOPHILS % (AUTO) 0.4 % (0.0-5.0); EOSINOPHILS % (AUTO) 0.1 % (0.0-8.0); HEMATOCRIT 33.5 % (36-48); MEAN CORPUSCULAR HEMOGLOBIN 31.8 pg (27.0-33.0); MEAN CORPUSCULAR HGB CONC 31.3 g/dL (32.0-36.0); MEAN CORPUSCULAR VOLUME 101.5 fL (79-99); MONOCYTES % (AUTO) 3.5 % (3.0-13.0); NUCLEATED RED BLOOD CELLS 0.2 % (0.0-0.19); PLATELET COUNT (AUTO) 102 K/uL (130-400); RED CELL DISTRIBUTION WIDTH 19.7 % (11.0-15.5); WHITE BLOOD COUNT (AUTO) 7.7 K/uL (4.8-10.8)
[2018-05-10 12:59] LABS: CREATININE 1.4 mg/dL (0.5-1.5); POTASSIUM 3.6 mmol/L (3.5-5.1)
[2018-05-10] MEDS: ACETAMINOPHEN 325 MG TAB PO PRN (15:57)
[2018-05-10 16:00] VITALS: BP 130/57
[2018-05-10 19:36] VITALS: BP 139/74
[2018-05-10] MEDS: CELECOXIB 100 MG CAP PO SCH (19:56)
[2018-05-11] VITALS: BP 118/73
[2018-05-11] MEDS: INSULIN HUMULIN R 100 UNIT/ML 3ML SQ SCH ×4 (01:12→18:50)
[2018-05-11] MEDS: VENLAFAXINE HCL XR 37.5 MG CAP PO SCH ×3 (01:15→20:30)
[2018-05-11 03:58] VITALS: BP 152/81
[2018-05-11 04:25] LABS: HEMATOCRIT 34.3 % (36-48); MEAN CORPUSCULAR HEMOGLOBIN 31.7 pg (27.0-33.0); MEAN CORPUSCULAR HGB CONC 31.8 g/dL (32.0-36.0); MEAN CORPUSCULAR VOLUME 99.5 fL (79-99); NUCLEATED RED BLOOD CELLS 0.2 % (0.0-0.19); PLATELET COUNT (AUTO) 135 K/uL (130-400); RED BLOOD CELL COUNT(AUTO) 3.44 MIL/uL (4.00-5.50); RED CELL DISTRIBUTION WIDTH 20.1 % (11.0-15.5); WHITE BLOOD COUNT (AUTO) 10.7 K/uL (4.8-10.8)
[2018-05-11 04:27] LABS: CREATININE 1.5 mg/dL (0.5-1.5); POTASSIUM 4.3 mmol/L (3.5-5.1)
[2018-05-11] MEDS: IPRATROPIUM/ALBUTEROL SULFATE 3 ML SOLUTION IH SCH ×4 (06:02→18:14)
[2018-05-11] MEDS: LEVOTHYROXINE 112 MCG TABLET PO SCH (06:07)
[2018-05-11 07:00] VITALS: BP 158/76
[2018-05-11] MEDS: METOCLOPRAMIDE 10 MG/2 ML VIAL IVP SCH ×4 (07:34→20:29)
[2018-05-11] MEDS: VANCOMYCIN 500MG+NS 100ML 100 ML IV SCH (09:15)
[2018-05-11] MEDS: ZOSYN 3.375GM+NS 50ML 50 ML IV SCH ×2 (09:16→20:30)
[2018-05-11] MEDS: METHYLPREDNISOLONE SOD SUCC 40MG/ML 1ML IVP SCH ×2 (09:16→20:29)
[2018-05-11] MEDS: SOTALOL HCL 80 MG TABLET PO SCH ×2 (09:17→20:30)
[2018-05-11] MEDS: CARVEDILOL 6.25 MG TABLET PO SCH ×2 (09:17→20:34)
[2018-05-11] MEDS: PANTOPRAZOLE SODIUM 40 MG TABLET.DR PO SCH (09:17)
[2018-05-11 11:00] VITALS: BP 144/75
[2018-05-11] MEDS: DEXTROSE 5 %-0.45 % NACL 1,000 ML IV SCH (12:32)
[2018-05-11 16:00] VITALS: BP 159/88
[2018-05-11] MEDS: WARFARIN SODIUM 5 MG TAB PO SCH (16:24)
[2018-05-11 20:15] VITALS: BP 144/78
[2018-05-11] MEDS: CELECOXIB 100 MG CAP PO SCH (20:30)
[2018-05-12] VITALS (7 sets, daily range): BP systolic 103–169; BP diastolic 53–90
[2018-05-12] MEDS: INSULIN HUMULIN R 100 UNIT/ML 3ML SQ SCH ×4 (00:46→18:14)
[2018-05-12 05:09] LABS: HEMATOCRIT 32.3 % (36-48); MEAN CORPUSCULAR HEMOGLOBIN 32.7 pg (27.0-33.0); MEAN CORPUSCULAR HGB CONC 33.2 g/dL (32.0-36.0); MEAN CORPUSCULAR VOLUME 98.5 fL (79-99); NUCLEATED RED BLOOD CELLS 0.2 % (0.0-0.19); PLATELET COUNT (AUTO) 110 K/uL (130-400); RED BLOOD CELL COUNT(AUTO) 3.28 MIL/uL (4.00-5.50); RED CELL DISTRIBUTION WIDTH 19.7 % (11.0-15.5); WHITE BLOOD COUNT (AUTO) 8.3 K/uL (4.8-10.8)
[2018-05-12 05:15] LABS: INR 1.05 (0.85-1.15); PARTIAL THROMBOPLASTIN TIME 27.3 SEC (26.3-35.5)
[2018-05-12 05:16] LABS: ALBUMIN 1.7 g/dL (3.5-5.0); BILIRUBIN,TOTAL 0.4 mg/dL (0.2-1.0); CREATININE 1.2 mg/dL (0.5-1.5); POTASSIUM 4.5 mmol/L (3.5-5.1); TOTAL PROTEIN, SERUM 5.4 g/dL (6.0-8.3)
[2018-05-12] MEDS: IPRATROPIUM/ALBUTEROL SULFATE 3 ML SOLUTION IH SCH ×4 (06:01→19:08)
[2018-05-12] MEDS: LEVOTHYROXINE 150 MCG TABLET PO SCH (06:12)
[2018-05-12] MEDS: METOCLOPRAMIDE 10 MG/2 ML VIAL IVP SCH ×4 (06:12→22:36)
[2018-05-12] MEDS: VANCOMYCIN 500MG+NS 100ML 100 ML IV SCH (09:47)
[2018-05-12] MEDS: ZOSYN 3.375GM+NS 50ML 50 ML IV SCH ×2 (09:47→22:35)
[2018-05-12] MEDS: METHYLPREDNISOLONE SOD SUCC 40MG/ML 1ML IVP SCH ×2 (09:48→22:37)
[2018-05-12] MEDS: SOTALOL HCL 80 MG TABLET PO SCH ×2 (09:50→22:36)
[2018-05-12] MEDS: PANTOPRAZOLE SODIUM 40 MG TABLET.DR PO SCH (09:52)
[2018-05-12] MEDS: VENLAFAXINE HCL XR 37.5 MG CAP PO SCH ×2 (09:52→22:36)
[2018-05-12] MEDS: CARVEDILOL 6.25 MG TABLET PO SCH ×2 (09:52→22:40)
[2018-05-12] MEDS: WARFARIN SODIUM 5 MG TAB PO SCH (17:00)
[2018-05-12] MEDS: CELECOXIB 100 MG CAP PO SCH (22:36)
[2018-05-13] MEDS: INSULIN HUMULIN R 100 UNIT/ML 3ML SQ SCH ×7 (01:05→21:00)
[2018-05-13 04:00] VITALS: BP 144/71
[2018-05-13] MEDS: IPRATROPIUM/ALBUTEROL SULFATE 3 ML SOLUTION IH SCH ×4 (05:29→18:29)
[2018-05-13] MEDS: METOCLOPRAMIDE 10 MG/2 ML VIAL IVP SCH ×4 (05:40→21:09)
[2018-05-13] MEDS: LEVOTHYROXINE 112 MCG TABLET PO SCH (05:40)
[2018-05-13] MEDS ORDERED: GLUCAGON 1MG KIT 1 MG ML IM PRN (07:45)
[2018-05-13] MEDS ORDERED: INSULIN GLARGINE 100 UNITS/ML 10 ML VIAL SQ SCH (07:45)
[2018-05-13] MEDS ORDERED: DEXTROSE 50%-WATER 50 ML DISP.SYRIN IV PRN (07:45)
[2018-05-13 08:08] VITALS: BP 138/86
[2018-05-13] MEDS: METHYLPREDNISOLONE SOD SUCC 40MG/ML 1ML IVP SCH ×2 (09:00→21:10)
[2018-05-13] MEDS: SOTALOL HCL 80 MG TABLET PO SCH ×2 (10:56→21:08)
[2018-05-13] MEDS: ZOSYN 3.375GM+NS 50ML 50 ML IV SCH ×2 (10:57→21:10)
[2018-05-13] MEDS: VENLAFAXINE HCL XR 37.5 MG CAP PO SCH ×2 (10:57→21:09)
[2018-05-13] MEDS: CARVEDILOL 6.25 MG TABLET PO SCH ×2 (10:57→21:09)
[2018-05-13] MEDS: PANTOPRAZOLE SODIUM 40 MG TABLET.DR PO SCH (10:57)
[2018-05-13 12:13] VITALS: BP 136/81
[2018-05-13 16:00] VITALS: BP 125/61
[2018-05-13] MEDS: WARFARIN SODIUM 5 MG TAB PO SCH (16:00)
[2018-05-13 18:35] LABS: ABG BASE EXCESS 4.6 mmol/L (-2.0-3.0); ABG HCO3 28.7 mmol/L (21.0-28.0); ABG OXYGEN SATURATION 96.1 % (95.0-99.0); ABG PCO2 41 mmHg (32-45)
[2018-05-13] MEDS: VANCOMYCIN 500MG+NS 100ML 100 ML IV SCH (18:40)
[2018-05-13 20:00] VITALS: BP 119/61
[2018-05-13] MEDS: CELECOXIB 100 MG CAP PO SCH (21:05)
[2018-05-13 23:10] VITALS: BP 93/46
[2018-05-14 04:00] VITALS: BP 115/58
[2018-05-14 04:31] LABS: BASOPHILS % (AUTO) 0.1 % (0.0-5.0); EOSINOPHILS % (AUTO) 0.1 % (0.0-8.0); HEMATOCRIT 32.9 % (36-48); LYMPHOCYTES % (AUTO) 8.1 % (21.0-51.0); MEAN CORPUSCULAR HEMOGLOBIN 33.7 pg (27.0-33.0); MEAN CORPUSCULAR HGB CONC 33.9 g/dL (32.0-36.0); MEAN CORPUSCULAR VOLUME 99.5 fL (79-99); MONOCYTES % (AUTO) 1.8 % (3.0-13.0); NEUTROPHILS % (AUTO) 89.9 % (40.0-77.0); NUCLEATED RED BLOOD CELLS 0.4 % (0.0-0.19); PLATELET COUNT (AUTO) 97 K/uL (130-400); RED BLOOD CELL COUNT(AUTO) 3.31 MIL/uL (4.00-5.50); RED CELL DISTRIBUTION WIDTH 20.9 % (11.0-15.5); WHITE BLOOD COUNT (AUTO) 6.3 K/uL (4.8-10.8)
[2018-05-14 04:47] LABS: CREATININE 1.2 mg/dL (0.5-1.5); POTASSIUM 4.7 mmol/L (3.5-5.1)
[2018-05-14] MEDS: INSULIN HUMULIN R 100 UNIT/ML 3ML SQ SCH ×3 (06:00→18:27)
[2018-05-14] MEDS: IPRATROPIUM/ALBUTEROL SULFATE 3 ML SOLUTION IH SCH ×4 (06:02→18:29)
[2018-05-14] MEDS: LEVOTHYROXINE 150 MCG TABLET PO SCH (06:30)
[2018-05-14 07:00] VITALS: BP 108/59
[2018-05-14] MEDS: METOCLOPRAMIDE 10 MG/2 ML VIAL IVP SCH ×4 (07:30→21:25)
[2018-05-14] MEDS: METHYLPREDNISOLONE SOD SUCC 40MG/ML 1ML IVP SCH ×2 (10:15→21:26)
[2018-05-14] MEDS: SOTALOL HCL 80 MG TABLET PO SCH ×2 (10:16→21:26)
[2018-05-14] MEDS: VENLAFAXINE HCL XR 37.5 MG CAP PO SCH ×2 (10:16→21:26)
[2018-05-14] MEDS: CARVEDILOL 6.25 MG TABLET PO SCH ×2 (10:16→21:00)
[2018-05-14] MEDS: PANTOPRAZOLE SODIUM 40 MG TABLET.DR PO SCH (10:16)
[2018-05-14] MEDS: ZOSYN 3.375GM+NS 50ML 50 ML IV SCH ×2 (10:26→21:25)
[2018-05-14 11:00] VITALS: BP 87/44
[2018-05-14 16:00] VITALS: BP 95/72
[2018-05-14] MEDS: WARFARIN SODIUM 5 MG TAB PO SCH (16:12)
[2018-05-14 19:51] VITALS: BP 95/70
[2018-05-14] MEDS: CELECOXIB 100 MG CAP PO SCH (21:27)
[2018-05-15] VITALS (7 sets, daily range): BP systolic 113–134; BP diastolic 58–78
[2018-05-15] MEDS: INSULIN HUMULIN R 100 UNIT/ML 3ML SQ SCH ×4 (01:18→17:23)
[2018-05-15] MEDS: METOCLOPRAMIDE 10 MG/2 ML VIAL IVP SCH ×4 (06:16→21:45)
[2018-05-15] MEDS: LEVOTHYROXINE 112 MCG TABLET PO SCH (06:16)
[2018-05-15] MEDS: IPRATROPIUM/ALBUTEROL SULFATE 3 ML SOLUTION IH SCH ×4 (06:17→18:06)
[2018-05-15] MEDS: ZOSYN 3.375GM+NS 50ML 50 ML IV SCH ×2 (10:24→21:45)
[2018-05-15] MEDS: METHYLPREDNISOLONE SOD SUCC 40MG/ML 1ML IVP SCH ×2 (10:25→21:45)
[2018-05-15] MEDS: PANTOPRAZOLE SODIUM 40 MG TABLET.DR PO SCH (10:25)
[2018-05-15] MEDS: VENLAFAXINE HCL XR 37.5 MG CAP PO SCH ×2 (10:25→21:46)
[2018-05-15] MEDS: SOTALOL HCL 80 MG TABLET PO SCH ×2 (10:25→21:46)
[2018-05-15] MEDS: CARVEDILOL 6.25 MG TABLET PO SCH ×2 (10:26→21:46)
[2018-05-15] MEDS: WARFARIN SODIUM 5 MG TAB PO SCH (17:20)
[2018-05-15] MEDS: VANCOMYCIN 500MG+NS 100ML 100 ML IV SCH (17:21)
[2018-05-15] MEDS: CELECOXIB 100 MG CAP PO SCH (21:45)
[2018-05-16] MEDS: INSULIN HUMULIN R 100 UNIT/ML 3ML SQ SCH ×3 (00:27→11:52)
[2018-05-16] MEDS: ACETAMINOPHEN 325 MG TAB PO PRN ×2 (01:02→11:51)
[2018-05-16 03:50] VITALS: BP 122/60
[2018-05-16] MEDS: IPRATROPIUM/ALBUTEROL SULFATE 3 ML SOLUTION IH SCH ×3 (06:12→13:55)
[2018-05-16] MEDS: METOCLOPRAMIDE 10 MG/2 ML VIAL IVP SCH (06:46)
[2018-05-16] MEDS: LEVOTHYROXINE 150 MCG TABLET PO SCH (06:46)
[2018-05-16 07:00] VITALS: BP 153/89
[2018-05-16] MEDS ORDERED: INSULIN GLARGINE 100 UNITS/ML 10 ML VIAL SQ SCH (08:00)
[2018-05-16] MEDS ORDERED: LANSOPRAZOLE 15 MG SOLU TAB PEG SCH (10:16)
[2018-05-16] MEDS: CARVEDILOL 6.25 MG TABLET PO SCH (10:23)
[2018-05-16] MEDS: SOTALOL HCL 80 MG TABLET PO SCH (10:28)
[2018-05-16] MEDS: METHYLPREDNISOLONE SOD SUCC 40MG/ML 1ML IVP SCH (10:28)
[2018-05-16] MEDS: ZOSYN 3.375GM+NS 50ML 50 ML IV SCH (10:28)
[2018-05-16] MEDS: VENLAFAXINE HCL XR 37.5 MG CAP PO SCH (10:28)
[2018-05-16 11:00] VITALS: BP 137/70
== END 2018-05-16 15:43 | DRG 871 ==
LOC: EDH 09:11 → EDHIP 12:16 → 3AH 17:40 → 2AH 20:02
PROVIDERS: ADMIT Internal Medicine; ATTEND Internal Medicine
PROC: 05H933Z Insertion of Infusion Device into Right Brachial Vein, Percutaneous Approach (ICD-10-PCS; 2018-05-04)
PROC: 0DJ08ZZ Inspection of Upper Intestinal Tract, Via Natural or Artificial Opening Endoscopic (ICD-10-PCS; principal; 2018-05-09)
PROC: 0DP6XUZ Removal of Feeding Device from Stomach, External Approach (ICD-10-PCS; 2018-05-09)
DX: A41.9 Sepsis, unspecified organism (principal); G93.41 Metabolic encephalopathy; E43 Unspecified severe protein-calorie malnutrition; I50.23 Acute on chronic systolic (congestive) heart failure; J69.0 Pneumonitis due to inhalation of food and vomit; J96.90 Respiratory failure, unspecified, unspecified whether with hypoxia or hypercapnia; J44.0 Chronic obstructive pulmonary disease with (acute) lower respiratory infection; N30.00 Acute cystitis without hematuria; D68.9 Coagulation defect, unspecified; E87.0 Hyperosmolality and hypernatremia; I13.0 Hypertensive heart and chronic kidney disease with heart failure and stage 1 through stage 4 chronic kidney disease, or unspecified chronic kidney disease; I31.3 Pericardial effusion (noninflammatory); I42.9 Cardiomyopathy, unspecified; J44.1 Chronic obstructive pulmonary disease with (acute) exacerbation; E83.42 Hypomagnesemia; E87.6 Hypokalemia; R65.20 Severe sepsis without septic shock; F41.9 Anxiety disorder, unspecified; D64.9 Anemia, unspecified; E03.9 Hypothyroidism, unspecified; E11.22 Type 2 diabetes mellitus with diabetic chronic kidney disease; E11.65 Type 2 diabetes mellitus with hyperglycemia; E86.0 Dehydration; F03.90 Unspecified dementia, unspecified severity, without behavioral disturbance, psychotic disturbance, mood disturbance, and anxiety; F32.9 Major depressive disorder, single episode, unspecified; I25.10 Atherosclerotic heart disease of native coronary artery without angina pectoris; I48.2 Chronic atrial fibrillation; K76.1 Chronic passive congestion of liver; N18.9 Chronic kidney disease, unspecified; R13.12 Dysphagia, oropharyngeal phase; Y95 Nosocomial condition; Z51.5 Encounter for palliative care; Z68.23 Body mass index [BMI] 23.0-23.9, adult; Z74.01 Bed confinement status; Z79.01 Long term (current) use of anticoagulants; Z95.2 Presence of prosthetic heart valve; Z95.0 Presence of cardiac pacemaker; Z93.3 Colostomy status; Z93.1 Gastrostomy status; Z87.01 Personal history of pneumonia (recurrent); Z88.5 Allergy status to narcotic agent; Z88.8 Allergy status to other drugs, medicaments and biological substances; Z83.3 Family history of diabetes mellitus; Z80.0 Family history of malignant neoplasm of digestive organs
CPT/HCPCS: 36415; 36600; 70450; 71045; 74021; 74176; 74230; 76700; 80048; 80053; 80202; 81001; 82140; 82550; 82553; 82803; 82947; 82948; 83605; 83735; 83874; 83880; 84443; 84484; 85025; 85027; 85610; 85730; 87040; 87070; 87088; 87205; 92526; 92611; 93005; 94640; 94664; 97039; 99291; G0480; J1815; J2060; J2543; J2704; J2765; J2920; J3370; J3430; J3475; J3480; J3490; J7030; J7042; J7120